=== PATIENT | female | born 1970 | race Caucasian/White ===

== ENCOUNTER 2020-07-02 12:18 | Emergency (ER) | payer BC, SELFPAY ==
[2020-07-02] VITALS (9 sets, daily range): BP systolic 137–199; BP diastolic 61–84; PULSE 78–104; RESP 18–24; TEMP 36.9; O2SAT 96–100
--- NOTE | ~2020-07-02 | XR_ITS ---
EXAMINATION: XR chest 1V portable INDICATION: Shortness of breath TECHNIQUE: Portable AP chest at 1332 hours COMPARISON: None available FINDINGS: Diffuse interstitial and airspace opacities are present. The heart size is upper limits of normal for technique. No pleural effusion or pneumothorax is identified. IMPRESSION: 1. Diffuse lung disease which could reflect pulmonary edema versus pneumonia. Reviewed, dictated and finalized at location A.
--- NOTE | ~2020-07-02 | CT_ITS ---
EXAMINATION: CTA chest PE protocol EXAM DATE: 07/02/2020 16:40 INDICATION: Shortness of breath with elevated d-dimer. TECHNIQUE: Spiral CTA of the chest (pulmonary arteries) was performed with 100 cc Omnipaque 350 intr avenous contrast injection. Images were acquired during the pulmonary arterial phase. Coronal maxi mum intensity projection 3D-reconstructions were created by the technologist on dedicated workstation . Axial, coronal and sagittal reformatted images were reviewed. The dose-length product (DLP) for t his examination was 1000.76 mGy-cm. The exposure was tailored according to patient size (auto mA ex posure control), and iterative reconstruction (ASIR) was used as additional dose reduction technique. There is no prior study for comparison. FINDINGS: Pulmonary arteries are well opacified and without intraluminal filling defects. No thora cic aortic dissection. There are small bilateral pleural effusions. Small regions of linear atelecta sis. Faint perihilar groundglass opacifications, could be edema or infection. Would be atypical appea andrei for COVID 19. Tracheobronchial tree is patent. There is no mediastinal, hilar or axillary lym phadenopathy. There is no pneumothorax. Heart normal in size. No evidence of coronary arterial calcification. There are cholecystectomy clips. There is thoracic spondylosis without osteoblastic or osteolytic lesions identified. IMPRESSION: 1. Small pleural effusions and faint perihilar groundglass opacities; consider edema and infection. COVID 19 not excludable. 2. No confluent consolidation or pulmonary embolism. Reviewed, dictated and finalized at location B.
--- NOTE | 2020-07-02 12:24 | ECG_ITS ---
Measurements Intervals [place] Rate: 87 P: 34 NM: 158 QRS: 13 QRSD: 90 T: 41 QT: 375 QTc: 453 Interpretive Statements SINUS RHYTHM NONSPECIFIC T-WAVE ABNORMALITY- INF/HIGH LAT LEADS BASELINE ARTIFACT- I, III, AVR, AVL,A VF BORDERLINE ECG Electronically Signed On 07-02-2020 13:23:34 CDT by Soto Falk D.O.
[2020-07-02 12:33] LABS: Basophils Absolute Auto 0.1 K/mm3 (0.0-0.1); Basophils Percent Auto 0.6 % (0.2-1.2); Eosinophils Absolute Auto 0.3 K/mm3 (0-0.3); Eosinophils Percent Auto 2.8 % (0-4.4); Hematocrit 39.4 % (37.0-47.0); Hemoglobin 11.9 g/dL (12.0-15.0); Immature Granulocyte Absolute 0.06 K/mm3 (0.00-0.031); Immature Granulocyte Percent A 0.7 % (0-0.5); Lymphocytes Absolute Auto 2.38 K/mm3 (0.9-3.2); Lymphocytes Percent Auto 26.6 % (18.3-44.2); Mean Corpuscular HGB Conc 30.2 g/dl (32-36); Mean Corpuscular Volume 89.3 fl (80-100); Mean Platelet Volume 9.6 fl (7.4-10.4); Monocytes Absolute Auto 0.4 K/mm3 (0.1-0.6); Monocytes Percent Auto 4.9 % (2.6-8.5); Neutrophils Absolute Auto 5.8 K/mm3 (1.3-6.7); Neutrophils Percent Auto 64.4 % (45.5-73.1); Platelet Count Result 282 k/mm3 (150-375); Red Blood Count 4.41 M/mm3 (4.2-5.4); Red Cell Distribution Width 14.3 % (11.5-14.5)
[2020-07-02 12:44] LABS: Anion Gap 8 mmol/L (8-16); Blood Urea Nitrogen 7 mg/dL (7-17); Calcium 8.9 mg/dL (8.4-10.2); Carbon Dioxide 24 mmol/L (22-30); Chloride 108 mmol/L (98-107); Estimated CRCL calculation 125 ml/min; Estimated Glomerular Filt Rate > 60; Glucose 169 mg/dL (65-105); Potassium 3.9 mmol/L (3.4-5.0); Sodium 140 mmol/L (137-145)
--- NOTE | 2020-07-02 13:28 | ED.SOB ---
HPI - SOB/Dyspnea General Chief Complaint: Shortness of Breath/Dyspnea Stated Complaint: CONGESTION Time Seen by Provider: 07/02/20 12:36 Source: patient Mode of arrival: ambulatory Limitations: no limitations History of Present Illness HPI Narrative: This patient is a 49 year old female with history of hypertension, DM, and bipolar who presents for evaluation shortness of breath. She reports she has been having runny nose, sinus congestion for 2 days. Today she reports she woke up wheezing and she has been having intermittent sob. She states she thinks she had a panic attack. She reports she feels better now. She denies fever, chills, chest pain, nausea, vomiting or diarrhea. She denies any sick contacts. MD elicited complaint: shortness of breath Related Data Home Medications Medication Instructions Recorded Confirmed bupropion HCl PO 07/02/20 07/02/20 lithium carbonate 07/02/20 losartan 07/02/20 pioglitazone mg 07/02/20 pravastatin 07/02/20 ziprasidone HCl 07/02/20 Allergies Allergy/AdvReac Type Severity Reaction Status Date / Time Penicillins Allergy Unknown Rash Verified 07/02/20 12:22 Review of Systems Review of Systems: All systems reviewed & are unremarkable except as noted in HPI and below Constitutional: Constitutional: Denies chills and Denies fever(s) ENT: Denies epistaxis, Reports nasal congestion and Denies sore throat Cardiovascular: Cardiovascular: Denies chest pain Respiratory: Respiratory: Reports cough (mild intermittent nonproductive), Reports dyspnea and Reports wheezing Gastrointestinal: Gastrointestinal: Denies abdominal pain, Denies diarrhea, Denies nausea and Denies vomiting Musculoskeletal: Musculoskeletal: Denies back pain PMF Past Medical History Medical History (Updated 07/02/20 @ 17:21 by Misty Wright MD) History of diabetes mellitus History of hyperlipidemia History of hypertension Surgical History Surgical History (Updated 07/02/20 @ 13:34 by Misty Wright MD) History of cholecystectomy Hx of appendectomy Family History Family History (Updated 02/17/17 @ 23:56 by DOCTOR UNKNOWN) Mother Family history of Alzheimer's disease Hypertension Family history of elevated blood lipids Cerebrovascular accident, Onset Age: 78 Father Family history of diabetes mellitus in first degree relative, Onset Age: 55 Hypertension Family history of elevated blood lipids Patient's father is Other Diabetes mellitus Family history of allergic disorder Family history of cardiovascular disease Social History Social History Smoking status: Never smoker Alcohol intake: never Gender identity (if verbalized by the patient): Female Exam Const: General: no acute distress and alert Nutritional Appearance: obese Orientation/consciousness: patient oriented x3 HENMT: Head: normocephalic and atraumatic Face and sinus: face symmetric and other (ruelas) Eyes: EOM: EOMs intact bilaterally Chest: Chest palpation & inspection: normal inspection of the chest Resp: Effort & Inspection: normal respiratory effort, no retractions and no use of accessory muscles Auscultation: clear to auscultation bilaterally Cardio: Rate: regular rate Rhythm: regular rhythm Heart sounds: no murmurs GI: GI Palp: Yes Soft to palpation, No Tenderness to palpation present (GI), No Guarding due to palpation present (GI) and No Rigid due to palpation Skin: General skin exam: normal color Neuro: General: patient oriented x3 and moves all extremities Course Reevaluation(s) Reevaluation #1: I Discussed finding with patient and plan to discharged. She has not concerns and she reports she has follow up with PCP next week. Date: 07/02/20 Time: 17:17 Consultations Consultation #1: I spoke with Barbra Daniels NP animal nutrition teacher for [employer]. She states she will let her PCP know and patient can follow. I discussed patient is stable
[2020-07-02 14:19] LABS: Lithium 0.6 mmol/L (0.6-1.2)
[2020-07-02 14:35] LABS: NT Pro B Type Natriuretic Pept 471 PG/ML (5-100); Troponin I < 0.012 ng/mL (0.000-0.034)
[2020-07-02] MEDS: FUROSEMIDE INJ 40 MG/4 ML VIAL IV PUSH (14:42)
[2020-07-02 15:47] LABS: INR 0.9; Prothrombin Time 11.9 Seconds (11.1-14.7)
[2020-07-02 15:48] LABS: Partial Thromboplastin Time 23.2 SECONDS (22.3-36.8)
[2020-07-02 15:52] LABS: CRP < 0.5 mg/dL (<1.0); Lactate Dehydrogenase 381 U/L (313-618)
[2020-07-02 16:32] LABS: Lactic Acid Reflex 2.4 mmol/L (0.7-2.1)
[2020-07-02 19:14] LABS: Reflex Lactic Acid Yes or No Add Lactic
[2020-07-03 02:52] LABS: SARS-CoV-2 RNA PCR Negative
== END 2020-07-02 17:51 | disposition home or self-care (01) ==
PROVIDERS: Emergency Medicine; Emergency Provider General Practice
DX: R06.00 Dyspnea, unspecified (principal); Z20.828 Contact with and (suspected) exposure to other viral communicable diseases; I10 Essential (primary) hypertension; E11.9 Type 2 diabetes mellitus without complications; F31.9 Bipolar disorder, unspecified; J98.4 Other disorders of lung; R91.8 Other nonspecific abnormal finding of lung field; R94.31 Abnormal electrocardiogram [ECG] [EKG]
CPT/HCPCS: 36415; 71045; 71275; 80048; 80178; 83605; 83615; 83880; 84484; 85025; 85380; 85610; 85730; 86140; 87635; 93005; 96374; 99284; C9803; J1940; Q9967; U0003

== ENCOUNTER 2021-04-28 08:51 | Emergency (ER) | payer BC, SELFPAY ==
[2021-04-28] VITALS (8 sets, daily range): BP systolic 123–166; BP diastolic 52–90; PULSE 68–89; RESP 11–25; TEMP 36.8; O2SAT 97–100
[2021-04-28 09:24] LABS: Basophils Absolute Auto 0.1 K/mm3 (0.0-0.1); Basophils Percent Auto 0.7 % (0.2-1.2); Eosinophils Absolute Auto 0.2 K/mm3 (0-0.3); Eosinophils Percent Auto 2.6 % (0-4.4); Hematocrit 36.4 % (37.0-47.0); Hemoglobin 11.5 g/dL (12.0-15.0); Immature Granulocyte Absolute 0.08 K/mm3 (0.00-0.031); Immature Granulocyte Percent A 0.9 % (0-0.5); Lymphocytes Absolute Auto 2.24 K/mm3 (0.9-3.2); Lymphocytes Percent Auto 25.3 % (18.3-44.2); Mean Corpuscular HGB Conc 31.6 g/dl (32-36); Mean Corpuscular Hemoglobin 27.8 pg (26-34); Mean Corpuscular Volume 87.9 fl (80-100); Mean Platelet Volume 9.5 fl (7.4-10.4); Monocytes Absolute Auto 0.4 K/mm3 (0.1-0.6); Monocytes Percent Auto 4.1 % (2.6-8.5); Neutrophils Absolute Auto 5.9 K/mm3 (1.3-6.7); Neutrophils Percent Auto 66.4 % (45.5-73.1); Platelet Count Result 287 k/mm3 (150-375); Red Blood Count 4.14 M/mm3 (4.2-5.4); Red Cell Distribution Width 14.2 % (11.5-14.5); White Blood Count 8.8 K/mm3 (4.5-10.0)
[2021-04-28 09:36] LABS: Alanine Aminotransferase 22 U/L (4-35); Albumin Level 3.8 g/dL (3.5-5.1); Alkaline Phosphatase 89 U/L (38-126); Anion Gap 6 mmol/L (8-16); Aspartate Amino Transferase 22 U/L (14-36); Bilirubin,Total 0.3 mg/dL (0.2-1.3); Blood Urea Nitrogen 9 mg/dL (7-17); Calcium 8.9 mg/dL (8.4-10.2); Carbon Dioxide 24 mmol/L (22-30); Chloride 109 mmol/L (98-107); Estimated CRCL calculation 132 ml/min; Estimated Glomerular Filt Rate > 60; Glucose 174 mg/dL (65-105); Lipase 83 U/L (23-300); Potassium 3.9 mmol/L (3.4-5.0); Sodium 139 mmol/L (137-145)
[2021-04-28 09:45] LABS: Add Urine Microscopic? YES; Appearance Urine Clear (Clear); Bilirubin Urine Negative (Negative); Blood Urine Negative (Negative); Color Urine Yellow (Yellow); Glucose Urine UA 2+ mg/dL (Negative); Ketones Urine Negative (Negative); Leukocyte Esterase Ur Negative LEU/UL (Negative); Mucus Urine Rare /lpf; Nitrate Urine Negative (Negative); Protein Urine 1+ mg/dL (Negative); RBC Urine 0-2 /hpf (0-2); Specific Grav Ur 1.016 (1.001-1.035); Squamous Epithelial Cell Urine Few /hpf (Few); Urobilinogen Urine Negative mg/dL (<2.0); WBC Urine 0-3 /hpf
--- NOTE | 2021-04-28 10:07 | ED.GENADULT ---
HPI - General Adult General Chief complaint: Nausea/Vomiting/Diarrhea Stated complaint: diarrhea, dizziness Time Seen by Provider: 04/28/21 09:06 Source: patient and RN notes reviewed Mode of arrival: ambulatory Limitations: no limitations History of Present Illness HPI narrative: Patient is a 50-year-old female who presents to emergency department for evaluation of episodic dizziness that began this morning upon waking patient notes that she has had this happen off and on believes it to be related to her bipolar medications patient also has concern for possible dehydration secondary to diarrhea over the last 2 days patient denies any rectal bleeding melena nausea vomiting fever chills or sick contacts on arrival patient in the room in no distress noting that her dizziness is beginning to improve Related Data Home Medications Medication Instructions Recorded Confirmed bupropion HCl PO 04/28/21 ibuprofen 04/28/21 04/28/21 liraglutide [Victoza 3-Rasta] mg SUBCUT 04/28/21 lithium carbonate mg 04/28/21 metformin mg 04/28/21 pioglitazone mg 04/28/21 pravastatin 04/28/21 ziprasidone HCl 04/28/21 Allergies Allergy/AdvReac Type Severity Reaction Status Date / Time Penicillins Allergy Unknown Rash Verified 04/28/21 09:02 Review of Systems Review of Systems: All systems reviewed & are unremarkable except as noted in HPI and below PMFSH Past Medical History Medical History (Updated 04/28/21 @ 11:21 by Adrián Goss PA-C) Bipolar disorder History of diabetes mellitus History of hyperlipidemia History of hypertension Surgical History Surgical History History of cholecystectomy Hx of appendectomy Family History Family History (Updated 02/17/17 @ 23:56 by DOCTOR UNKNOWN) Mother Family history of Alzheimer's disease Hypertension Family history of elevated blood lipids Cerebrovascular accident, Onset Age: 78 Father Family history of diabetes mellitus in first degree relative, Onset Age: 55 Hypertension Family history of elevated blood lipids Patient's father is Other Diabetes mellitus Family history of allergic disorder Family history of cardiovascular disease Social History Social History Smoking status: Never smoker Alcohol intake: never Gender identity (if verbalized by the patient): Female Exam Narrative: Exam Narrative: GENERAL: Well-appearing, obese, and in no acute distress. HEAD: Normocephalic, atraumatic. EYES: PERRLA and EOMI. ENT: Nares clear, no rhinorrhea or epistaxis. Mucous membranes moist. NECK: Supple. No adenopathy or masses. CHEST: Clear to auscultation. No respiratory distress. No wheezes rales or rhonchi HEART: Regular rate and rhythm. No murmur heard. Normal peripheral pulses. ABDOMEN: Soft, nontender, nondistended EXTREMITIES: Normal range of motion. No edema. SKIN: Warm, dry, no rash. NEURO: No focal deficits. Alert and oriented x3. Cranial nerves II through XII grossly intact. Normal speech PSYCH: Normal mood and affect. Course Course Emergency Course: Patient evaluated for dizziness and diarrhea was hydrated notes her symptoms have resolved able to ambulate without complication or difficulty resting comfortably in the room in no distress agreeing to follow-up as instructed with primary care next week as planned ABCs and vital signs intact and stable patient was hydrated is noted and feels much better at this time patient is afebrile nontoxic-appearing in no distress Vital Signs Vital signs: Vital Signs Temperature 98.2 F 04/28/21 08:56 Pulse Rate 71 04/28/21 08:56 Respiratory Rate 16 04/28/21 08:56 Blood Pressure 163/79 H 04/28/21 08:56 Pulse Oximetry 97 04/28/21 08:56 Temperature 98.2 F 04/28/21 08:56 Pulse Rate 70 04/28/21 10:32 Respiratory Rate 20 04/28/21 10:32 Blood Pres
[2021-04-28] MEDS: SODIUM CHLORIDE 0.9% IV 1,000 ML 999 ML IV CONT (10:17)
== END 2021-04-28 12:00 | disposition home or self-care (01) ==
PROVIDERS: Emergency Provider Emergency Medicine; PCP Nurse Practitioner Family
DX: R42 Dizziness and giddiness (principal); F31.9 Bipolar disorder, unspecified; E11.9 Type 2 diabetes mellitus without complications; E78.5 Hyperlipidemia, unspecified; I10 Essential (primary) hypertension; Z79.84 Long term (current) use of oral hypoglycemic drugs
CPT/HCPCS: 36415; 51701; 80053; 81001; 81025; 83690; 85025; 96360; 96361; 99283; J7030

== ENCOUNTER 2021-05-25 10:00 | Emergency (ER) | payer BC, SELFPAY ==
--- NOTE | 2021-05-25 10:07 | ED_ITS ---
HPI - Extremity Injury (Lower) General Chief Complaint: Extremity Problem,Nontraumatic Stated Complaint: joint pain Time Seen by Provider: 05/25/21 10:00 Source: patient and RN notes reviewed Mode of arrival: ambulatory Limitations: no limitations Related Data Home Medications Medication Instructions Recorded Confirmed bupropion HCl PO 04/28/21 ibuprofen 04/28/21 04/28/21 liraglutide [Victoza 3-Rasta] mg SUBCUT 04/28/21 lithium carbonate mg 04/28/21 metformin mg 04/28/21 pioglitazone mg 04/28/21 pravastatin 04/28/21 ziprasidone HCl 04/28/21 losartan 05/25/21 Allergies Allergy/AdvReac Type Severity Reaction Status Date / Time Penicillins Allergy Unknown Rash Verified 04/28/21 09:02 [facility] Past Medical History Medical History (Updated 04/29/21 @ 00:00 by Sam Ochoa) Bipolar disorder History of diabetes mellitus History of hyperlipidemia History of hypertension Surgical History Surgical History History of cholecystectomy Hx of appendectomy Family History Family History (Updated 02/17/17 @ 23:56 by DOCTOR UNKNOWN) Mother Family history of Alzheimer's disease Hypertension Family history of elevated blood lipids Cerebrovascular accident, Onset Age: 78 Father Family history of diabetes mellitus in first degree relative, Onset Age: 55 Hypertension Family history of elevated blood lipids Patient's father is Other Diabetes mellitus Family history of allergic disorder Family history of cardiovascular disease Social History Social History Smoking status: Never smoker Alcohol intake: never Gender identity (if verbalized by the patient): Female Discharge Plan Discharge Prescriptions: No Action losartan 50 mg tablet RF: 0 ziprasidone HCl 80 mg capsule RF: 0 ibuprofen 800 mg tablet RF: 0 pravastatin 10 mg tablet RF: 0 lithium carbonate 300 mg capsule RF: 0 metformin 1,000 mg tablet RF: 0 pioglitazone 30 mg tablet RF: 0 Victoza 3-Rasta 0.6 mg/0.1 mL (18 mg/3 mL) pen injector SUBCUT RF: 0 bupropion HCl 150 mg tablet sustained-release 12 hr PO RF: 0
[2021-05-25 10:11] VITALS: BP 141/58; PULSE 84; RESP 16; TEMP 36.3; O2SAT 99
--- NOTE | 2021-05-25 11:05 | ED.GENADULT ---
HPI - General Adult General Chief complaint: Extremity Problem,Nontraumatic Stated complaint: joint pain Time Seen by Provider: 05/25/21 10:20 Source: patient and RN notes reviewed Mode of arrival: ambulatory Limitations: no limitations History of Present Illness HPI narrative: Patient presents today complaining of bilateral shoulder joint aches and upper back pain x1 week. States pain started after she got her COVID-19 vaccine. Reports she had a fever for 4 days after the vaccine, but this has since resolved. She continues to have body aches in her upper upper back and bilateral shoulders. She currently rates pain 8/10 and has been taking Tylenol and ibuprofen without relief. She denies any additional symptoms. Denies any rheumatological disorders, but states she does have arthritis, throughout my body. States her work is requiring her to have a work note to excuse her from work 2 days ago. Patient works at [employer] and has to stand on her feet for 6 hours at a time. MD complaint: Shoulder pain Related Data Home Medications Medication Instructions Recorded Confirmed bupropion HCl PO 04/28/21 ibuprofen 04/28/21 04/28/21 liraglutide [Victoza 3-Rasta] mg SUBCUT 04/28/21 lithium carbonate mg 04/28/21 metformin mg 04/28/21 pioglitazone mg 04/28/21 pravastatin 04/28/21 ziprasidone HCl 04/28/21 acetaminophen 05/25/21 losartan 05/25/21 Allergies Allergy/AdvReac Type Severity Reaction Status Date / Time Penicillins Allergy Unknown Rash Verified 04/28/21 09:02 Review of Systems Review of Systems: Narrative: CONSTITUTIONAL: Denies fever, chills, or sweats.+ Body aches EYES: Denies visual changes, redness, or discharge. ENT: Denies rhinorrhea, congestion, sore throat, or otalgia. CARDIOVASCULAR: Denies chest pain, palpitations, or edema. RESPIRATORY: Denies cough or dyspnea. GASTROINTESTINAL: Denies abdominal pain, nausea, vomiting, or diarrhea. GENITOURINARY: Denies dysuria or hematuria. SKIN: Denies rash, itching, or wounds. MUSCULOSKELETAL: + Upper back pain, bilateral shoulder pain NEUROLOGIC: Denies headache, numbness, tingling, or weakness. PSYCH: Denies depression or anxiety. [facility] Past Medical History Medical History Bipolar disorder History of diabetes mellitus History of hyperlipidemia History of hypertension Surgical History Surgical History History of cholecystectomy Hx of appendectomy Family History Family History Mother Family history of Alzheimer's disease Hypertension Family history of elevated blood lipids Cerebrovascular accident, Onset Age: 78 Father Family history of diabetes mellitus in first degree relative, Onset Age: 55 Hypertension Family history of elevated blood lipids Patient's father is Other Diabetes mellitus Family history of allergic disorder Family history of cardiovascular disease Social History Social History Smoking status: Never smoker Alcohol intake: never Gender identity (if verbalized by the patient): Female Comments At time of signature, I have reviewed and agree with nursing past medical, surgical, social and family history unless otherwise noted. Please see nursing chart for further information. There is no relevant family history pertinent to the presenting complaint Exam Narrative: Exam Narrative: GENERAL: Well-appearing, well-nourished, and in no acute distress. HEAD: Normocephalic, atraumatic. EYES: EOMI. No redness or drainage. Conjunctivae normal. ENT: Mucous membranes pink and moist. NECK: Normal AROM. CHEST: No respiratory distress. Clear to auscultation. HEART: Regular rate and rhythm. No murmur appreciated. Normal peripheral pulses. ABDOMEN: Soft, n
== END 2021-05-25 11:11 | disposition home or self-care (01) ==
PROVIDERS: Emergency Provider Nurse Practitioner; PCP Nurse Practitioner Family
DX: M25.511 Pain in right shoulder (principal); Z20.822 Contact with and (suspected) exposure to COVID-19; E11.9 Type 2 diabetes mellitus without complications; E78.5 Hyperlipidemia, unspecified; I10 Essential (primary) hypertension
CPT/HCPCS: 87426; 99213; C9803; G0463

== ENCOUNTER 2021-07-14 08:37 | Emergency (ER) | payer BC, SELFPAY ==
[2021-07-14 08:50] VITALS: BP 131/62; PULSE 70; RESP 16; TEMP 36.2; O2SAT 99
--- NOTE | 2021-07-14 09:20 | ED.URI ---
HPI - URI/Sore Throat General Chief Complaint: Upper Respiratory Infection Stated Complaint: sore throat/cough Time Seen by Provider: 07/14/21 09:20 Source: patient Mode of arrival: ambulatory Limitations: no limitations History of Present Illness HPI Narrative: Ana Luisa Estrada is a 50 yo female with a PMH of hypertension, diabetes, high cholesterol, who comes with a sore throat and allergies. She states that her throat is been bothering for the last couple days she is not running a fever, she also has missed work Had covid vaccine Related Data Home Medications Medication Instructions Recorded Confirmed bupropion HCl PO 04/28/21 ibuprofen 04/28/21 04/28/21 liraglutide [Victoza 3-Rasta] mg SUBCUT 04/28/21 lithium carbonate mg 04/28/21 metformin 1,000 mg PO BID 04/28/21 07/14/21 pioglitazone mg 04/28/21 pravastatin 10 mg PO DAILY 04/28/21 07/14/21 ziprasidone HCl 80 mg PO DAILY 04/28/21 07/14/21 acetaminophen 05/25/21 losartan 50 mg PO DAILY 05/25/21 07/14/21 Allergies Allergy/AdvReac Type Severity Reaction Status Date / Time Penicillins Allergy Unknown Rash Verified 04/28/21 09:02 Review of Systems Review of Systems: CONSTITUTIONAL: Denies fever, chills, sweats. EYES: Denies visual changes, redness, discharge. ENT: Has rhinorrhea, congestion, has sore throat, otalgia. CARDIOVASCULAR: Denies chest pain, palpitations, edema. RESPIRATORY: Denies dyspnea, wheezing, cough GASTROINTESTINAL: Denies abdominal pain, nausea, vomiting, diarrhea. GENITOURINARY: Denies dysuria, hematuria, abnormal discharge SKIN: Denies rash or itching. NEUROLOGIC: Denies numbness, or focal weakness. PSYCHIATRIC: Denies anxiety or depression. [facility] Past Medical History Medical History Bipolar disorder History of diabetes mellitus History of hyperlipidemia History of hypertension Surgical History Surgical History History of cholecystectomy Hx of appendectomy Family History Family History Mother Family history of Alzheimer's disease Hypertension Family history of elevated blood lipids Cerebrovascular accident, Onset Age: 78 Father Family history of diabetes mellitus in first degree relative, Onset Age: 55 Hypertension Family history of elevated blood lipids Patient's father is Other Diabetes mellitus Family history of allergic disorder Family history of cardiovascular disease Social History Social History Smoking status: Never smoker Alcohol intake: never Gender identity (if verbalized by the patient): Female Comments At time of signature, I agree with nursing past medical, surgical, social and family history. There is no relevant family history pertinent to the presenting complaint. Exam Narrative: GENERAL: This is a well-nourished, well-developed patient, in mild distress. HEAD: normocephalic, atraumatic. EYES:Sclera clear/white. Vision is grossly intact. EARS: External ears normal, auditory canals clear and without drainage, Hearing grossly intact. NOSE: External nose normal without nasal discharge, nares without redness, has rhinorrhea. THROAT: Mucous membranes moist, posterior pharynx erythema, no exudate NECK: Neck supple, non-tender CARDIOVASCULAR: Regular rate and rhythm without murmurs, gallops, or rubs. RESPIRATORY: Clear to auscultation. Breath sounds equal bilaterally. No wheezes, rales, or rhonchi. GASTROINTESTINAL: Abdomen soft, non-tender, SKIN: warm, intact with no suspicious lesions or rash, good texture and turgor. NEURO: awake, alert, and oriented to person, place and time. There were no obvious focal neurologic abnormalities. Steady gait EXTREMITIES: Normal range of motion. BACK: Nontender without deformity Course Course Emergency
== END 2021-07-14 09:44 | disposition home or self-care (01) ==
PROVIDERS: Emergency Provider Nurse Practitioner
DX: J30.2 Other seasonal allergic rhinitis (principal); J02.9 Acute pharyngitis, unspecified; E11.9 Type 2 diabetes mellitus without complications; E78.5 Hyperlipidemia, unspecified; I10 Essential (primary) hypertension
CPT/HCPCS: 87081; 87880; 99213; G0463

== ENCOUNTER 2022-01-28 15:24 | Emergency (ER) | payer BC, SELFPAY ==
[2022-01-28 15:34] VITALS: BP 151/103; PULSE 91; RESP 16; TEMP 36.8; O2SAT 98
--- NOTE | 2022-01-28 15:59 | ED.NAVMDI ---
HPI - Nausea/Vomiting/Diarrhea General Chief complaint: Nausea/Vomiting/Diarrhea Stated complaint: vomiting Time Seen by Provider: 01/28/22 15:41 Source: patient and RN notes reviewed Mode of arrival: ambulatory Limitations: no limitations History of Present Illness HPI Narrative: Patient presents today complaining of 3-4 episodes of vomiting between 4 and 8:00 this morning. Patient vomited 30 minutes after taking her morning medications this morning. Some mild nausea has persisted, but persistently she has been belching. Patient slept for much of the day and just woke up at 1500 this afternoon. States she has been feeling much better since waking up. She has not vomited after waking up. She has been able to keep down some fluids, and has urinated. Denies abdominal pain, fever, diarrhea. States she tried to go into work at [employer], but was told that she needed a note because she has been vomiting. MD elicited complaint: nausea and vomiting Related Data Home Medications Medication Instructions Recorded Confirmed bupropion HCl 150 mg PO DAILY 04/28/21 01/28/22 lithium carbonate 300 mg PO DAILY 04/28/21 01/28/22 metformin 1,000 mg PO BID 04/28/21 01/28/22 pravastatin 10 mg PO DAILY 04/28/21 01/28/22 ziprasidone HCl 80 mg PO DAILY 04/28/21 01/28/22 losartan 50 mg PO DAILY 05/25/21 01/28/22 benztropine 0.5 mg PO DAILY 01/28/22 01/28/22 tizanidine 4 mg PO DAILY 01/28/22 01/28/22 Allergies Allergy/AdvReac Type Severity Reaction Status Date / Time Penicillins Allergy Unknown Rash Verified 04/28/21 09:02 Review of Systems Review of Systems: CONSTITUTIONAL: Denies body aches, fever, chills, or sweats. EYES: Denies visual changes, redness, or discharge. ENT: Denies rhinorrhea, congestion, sore throat, or otalgia. CARDIOVASCULAR: Denies chest pain, palpitations, or edema. RESPIRATORY: Denies cough or dyspnea. GASTROINTESTINAL: Denies abdominal pain, diarrhea.+ Nausea and vomiting GENITOURINARY: Denies dysuria or hematuria. SKIN: Denies rash, itching, or wounds. MUSCULOSKELETAL: Denies back pain, joint pain, or myalgia. NEUROLOGIC: Denies headache, numbness, tingling, or weakness. PSYCH: Denies depression or anxiety. [facility] Past Medical History Medical History Bipolar disorder History of diabetes mellitus History of hyperlipidemia History of hypertension Surgical History Surgical History History of cholecystectomy Hx of appendectomy Family History Family History Mother Family history of Alzheimer's disease Hypertension Family history of elevated blood lipids Cerebrovascular accident, Onset Age: 78 Father Family history of diabetes mellitus in first degree relative, Onset Age: 55 Hypertension Family history of elevated blood lipids Patient's father is Other Diabetes mellitus Family history of allergic disorder Family history of cardiovascular disease Social History Social History Smoking status: Never smoker Alcohol intake: never Gender identity (if verbalized by the patient): Female Comments At time of signature, I have reviewed and agree with nursing past medical, surgical, social and family history unless otherwise noted. Please see nursing chart for further information. There is no relevant family history pertinent to the presenting complaint Exam Narrative: GENERAL: Well-appearing, well-nourished, and in no acute distress. HEAD: Normocephalic, atraumatic. EYES: EOMI. No redness or drainage. Conjunctivae normal. ENT: Mucous membranes pink and moist. NECK: Normal AROM. Supple. No lymphadenopathy. CHEST: No respiratory distress. Clear to auscultation. HEART: Regular rate and rhythm. No murmur appreciated. Normal perip
== END 2022-01-28 16:10 | disposition home or self-care (01) ==
PROVIDERS: Emergency Provider Nurse Practitioner; PCP Nurse Practitioner Family
DX: R11.2 Nausea with vomiting, unspecified (principal); E11.9 Type 2 diabetes mellitus without complications; E78.5 Hyperlipidemia, unspecified; I10 Essential (primary) hypertension; F31.9 Bipolar disorder, unspecified
CPT/HCPCS: 99211; G0463

== ENCOUNTER 2022-09-30 12:40 | Emergency (ER) | payer BC, SELFPAY ==
[2022-09-30 12:46] VITALS: BP 136/82; PULSE 84; RESP 16; TEMP 36.6; O2SAT 99
--- NOTE | 2022-09-30 12:51 | ED.URI ---
HPI - URI/Sore Throat General Chief Complaint: Upper Respiratory Infection Stated Complaint: sore throat, nose congestion, ears popping Time Seen by Provider: 09/30/22 12:55 Source: patient, RN notes reviewed and old records reviewed Mode of arrival: ambulatory Limitations: no limitations History of Present Illness HPI Narrative: 52-year-old female presents to the [facility] with complaints of sore throat, nasal congestion and ear fullness and popping Symptoms for 1 week. No treatment prior to arrival. Requesting a work Related Data Home Medications Medication Instructions Recorded Confirmed lithium carbonate 300 mg capsule 300 mg PO TIDWM 04/28/21 01/28/22 metformin 1,000 mg tablet 1,000 mg PO BID 04/28/21 01/28/22 pravastatin 10 mg tablet 10 mg PO DAILY 04/28/21 01/28/22 ziprasidone HCl 80 mg capsule 80 mg PO DAILY 04/28/21 01/28/22 losartan 50 mg tablet 50 mg PO DAILY 05/25/21 01/28/22 benztropine 0.5 mg tablet 0.5 mg PO BIDWM 01/28/22 01/28/22 tizanidine 4 mg tablet 4 mg PO DAILY 01/28/22 01/28/22 glimepiride 4 mg tablet mg 09/30/22 ibuprofen 800 mg tablet mg 09/30/22 liraglutide 0.6 mg/0.1 mL (18 mg/3 mg subcut 09/30/22 mL) subcutaneous pen injector (Victoza 3-Rasta) Allergies Allergy/AdvReac Type Severity Reaction Status Date / Time Penicillins Allergy Unknown Rash Verified 09/30/22 12:44 Review of Systems Review of Systems: All systems reviewed & are unremarkable except as noted in HPI and below Constitutional: Constitutional: Reports no additional constitutional complaints, Denies chills and Denies fever(s) Eyes: Eyes: Reports no additional eye complaints ENT: Reports as per HPI and Reports nasal congestion Cardiovascular: Cardiovascular: Reports no additional cardiovascular complaints Respiratory: Respiratory: Reports as per HPI and Reports cough Gastrointestinal: Gastrointestinal: Reports no additional gastrointestinal complaints Musculoskeletal: Musculoskeletal: Reports no additional musculoskeletal complaints Integumentary/Breasts: Skin/Breast: Reports system reviewed and no additional complaints, except as docu Neurologic: Reports system reviewed and no additional complaints, except as documented Psychiatric: Psychiatric: Reports no additional psychiatric complaints Allergic/Immunologic: Allergic/Immunologic: Reports no additional allergic/immunologic complaints PMFSH Past Medical History Medical History Bipolar disorder History of diabetes mellitus History of hyperlipidemia History of hypertension Surgical History Surgical History History of cholecystectomy Hx of appendectomy Family History Family History Mother Family history of Alzheimer's disease Hypertension Family history of elevated blood lipids Cerebrovascular accident, Onset Age: 78 Father Family history of diabetes mellitus in first degree relative, Onset Age: 55 Hypertension Family history of elevated blood lipids Patient's father is Other Diabetes mellitus Family history of allergic disorder Family history of cardiovascular disease Social History Social History Smoking status: Never smoker Alcohol intake: never Gender identity (if verbalized by the patient): Female Comments At the time of my signature, I reviewed and agree with the nursing past medical, surgical, social, and family history. There is no relevant family history pertinent to the patient complaint. Exam Const: General: healthy appearing, comfortable, no acute distress, well developed, alert and well nourished Nutritional Appearance: well nourished Orientation/consciousness: patient oriented x3 Limitations: no limitations HENMT: Head: normal to inspection Ears: external ears normal
== END 2022-09-30 13:23 | disposition home or self-care (01) ==
PROVIDERS: Emergency Provider Nurse Practitioner; PCP Nurse Practitioner Family
DX: J32.9 Chronic sinusitis, unspecified (principal); J40 Bronchitis, not specified as acute or chronic; E11.9 Type 2 diabetes mellitus without complications; E78.5 Hyperlipidemia, unspecified; I10 Essential (primary) hypertension; F31.9 Bipolar disorder, unspecified
CPT/HCPCS: 99213; G0463

== ENCOUNTER 2022-11-18 14:37 | Emergency (ER) | payer BC, SELFPAY ==
[2022-11-18 14:48] VITALS: BP 128/52; PULSE 116; RESP 16; TEMP 37; O2SAT 98
--- NOTE | 2022-11-18 15:11 | ED.URI ---
HPI - URI/Sore Throat General Chief Complaint: Upper Respiratory Infection Stated Complaint: cold/flu sx Time Seen by Provider: 11/18/22 15:05 Source: patient, RN notes reviewed and old records reviewed Mode of arrival: ambulatory Limitations: no limitations History of Present Illness HPI Narrative: 52 year old female who presents to [facility] care with complaints of acute cough for 1.5 weeks with now some sore throat, post nasal drainage, and sneezing for the past 2 days. Patient reports history of seasonal allergies. Patient reports that she has taken some OTC cold medication with no improvement. Patient reports no fevers chills or sweats, body aches, or any nausea vomiting or diarrhea. MD elicited complaint: cough, rhinorrhea, nasal congestion and other (sneezing) Pertinent past history: seasonal allergies Onset (ago): day(s) (2) Pain scale (0-10): 3 Able to tolerate fluids by mouth: Yes Treatments prior to arrival: cold medicine Related Data Home Medications Medication Instructions Recorded Confirmed lithium carbonate 300 mg capsule 300 mg PO TIDWM 04/28/21 11/18/22 metformin 1,000 mg tablet 1,000 mg PO BID 04/28/21 11/18/22 pravastatin 10 mg tablet 10 mg PO DAILY 04/28/21 11/18/22 ziprasidone HCl 80 mg capsule 80 mg PO DAILY 04/28/21 11/18/22 losartan 50 mg tablet 50 mg PO DAILY 05/25/21 11/18/22 benztropine 0.5 mg tablet 0.5 mg PO BIDWM 01/28/22 11/18/22 tizanidine 4 mg tablet 4 mg PO DAILY 01/28/22 11/18/22 glimepiride 4 mg tablet 4 mg PO DAILY 09/30/22 11/18/22 liraglutide 0.6 mg/0.1 mL (18 mg/3 0.6 mg subcut DIRECTED 09/30/22 11/18/22 mL) subcutaneous pen injector (Victoza 3-Rasta) Allergies Allergy/AdvReac Type Severity Reaction Status Date / Time Penicillins Allergy Unknown Rash Verified 11/18/22 14:41 Review of Systems Review of Systems: CONSTITUTIONAL: Denies malaise, chills, sweats, or fever. EYES: Denies visual changes, redness, or discharge. ENT: Reports rhinorrhea, congestion, no sinus pain, no otalgia and sore throat. CARDIOVASCULAR: Denies chest pain, palpitations, or edema. RESPIRATORY: Reports cough.? Denies dyspnea.cough bothersome and persistent GASTROINTESTINAL: Denies abdominal pain, nausea, vomiting, diarrhea SKIN: Denies rash or itching. MUSCULOSKELETAL: Denies myalgia. NEUROLOGIC: Denies headache. All systems reviewed & are unremarkable except as noted in HPI and below PMFSH Past Medical History Medical History (Updated 11/19/22 @ 00:00 by Sam Ochoa) Bipolar disorder History of diabetes mellitus History of hyperlipidemia History of hypertension Surgical History Surgical History (Updated 11/24/22 @ 14:36 by Piper Kumar NP) History of cholecystectomy History of tonsillectomy Hx of appendectomy Family History Family History Mother Family history of Alzheimer's disease Hypertension Family history of elevated blood lipids Cerebrovascular accident, Onset Age: 78 Father Family history of diabetes mellitus in first degree relative, Onset Age: 55 Hypertension Family history of elevated blood lipids Patient's father is Other Diabetes mellitus Family history of allergic disorder Family history of cardiovascular disease Social History Social History Smoking status: Never smoker Alcohol intake: never Gender identity (if verbalized by the patient): Female Comments At time of signature, agree with nursing past medical, surgical, social and family history. There is no relevant family history pertinent to the presenting complaint Exam Narrative: GENERAL: Well-appearing, well-nourished, and in no acute distress. HEAD: Normocephalic EYES: PERRLA, conjunctivae clear ENT: Nares clear, turbinates edematous and erythematous, clear discharge. Mucous membranes moist. TM pearly kim with dull light ref
== END 2022-11-18 15:35 | disposition home or self-care (01) ==
PROVIDERS: Emergency Provider Registered Nurse
DX: J06.9 Acute upper respiratory infection, unspecified (principal); E11.9 Type 2 diabetes mellitus without complications; E78.5 Hyperlipidemia, unspecified; I10 Essential (primary) hypertension; F31.9 Bipolar disorder, unspecified
CPT/HCPCS: 99213; G0463

== ENCOUNTER 2023-03-24 17:13 | Emergency (ER) | payer BC, SELFPAY ==
[2023-03-24 17:26] VITALS: BP 134/48; PULSE 81; RESP 18; TEMP 36.9; O2SAT 99
--- NOTE | 2023-03-24 18:02 | ED.URI ---
HPI - URI/Sore Throat General Chief Complaint: Upper Respiratory Infection Stated Complaint: pain in ear & spread to sinuses; sore throat; dizz Time Seen by Provider: 03/24/23 17:54 Source: patient and RN notes reviewed Mode of arrival: ambulatory Limitations: no limitations History of Present Illness HPI Narrative: Patient presents today with a 3 day history of right ear pain with right sinus pain that started yesterday and throat scratchiness and postnasal drip that started today. Hearing normal. Currently rates her pain 8/10 and has been taking Tylenol and ibuprofen with some relief. Patient states she does have seasonal allergies, but does not currently take any medication for them. Related Data Home Medications Medication Instructions Recorded Confirmed lithium carbonate 300 mg capsule 300 mg PO TIDWM 04/28/21 03/24/23 metformin 1,000 mg tablet 1,000 mg PO BID 04/28/21 03/24/23 pravastatin 10 mg tablet 10 mg PO DAILY 04/28/21 03/24/23 ziprasidone HCl 80 mg capsule 80 mg PO DAILY 04/28/21 03/24/23 losartan 50 mg tablet 50 mg PO DAILY 05/25/21 03/24/23 glimepiride 4 mg tablet 4 mg PO DAILY 09/30/22 03/24/23 liraglutide 0.6 mg/0.1 mL (18 mg/3 0.6 mg subcut DIRECTED 09/30/22 03/24/23 mL) subcutaneous pen injector (Victoza 3-Rasta) Allergies Allergy/AdvReac Type Severity Reaction Status Date / Time Penicillins Allergy Unknown Rash Verified 11/18/22 14:41 Review of Systems Review of Systems: CONSTITUTIONAL: Denies body aches, fever, chills, or sweats. EYES: Denies visual changes, redness, or discharge. ENT: Denies rhinorrhea, congestion, sore throat. + sinus pressure, right ear pain, scratchy throat CARDIOVASCULAR: Denies chest pain, palpitations, or edema. RESPIRATORY: Denies cough or dyspnea. GASTROINTESTINAL: Denies abdominal pain, nausea, vomiting, or diarrhea. GENITOURINARY: Denies dysuria or hematuria. SKIN: Denies rash, itching, or wounds. MUSCULOSKELETAL: Denies back pain, joint pain, or myalgia. NEUROLOGIC: Denies headache, numbness, tingling, or weakness. PSYCH: Denies depression or anxiety. PMFSH Past Medical History Medical History Bipolar disorder History of diabetes mellitus History of hyperlipidemia History of hypertension Surgical History Surgical History History of cholecystectomy History of tonsillectomy Hx of appendectomy Family History Family History Mother Family history of Alzheimer's disease Hypertension Family history of elevated blood lipids Cerebrovascular accident, Onset Age: 78 Father Family history of diabetes mellitus in first degree relative, Onset Age: 55 Hypertension Family history of elevated blood lipids Patient's father is Other Diabetes mellitus Family history of allergic disorder Family history of cardiovascular disease Social History Social History Smoking status: Never smoker Alcohol intake: never Gender identity (if verbalized by the patient): Female Comments At time of signature, I have reviewed and agree with nursing past medical, surgical, social and family history unless otherwise noted. Please see nursing chart for further information. There is no relevant family history pertinent to the presenting complaint Exam Narrative: GENERAL: Well-appearing, well-nourished, and in no acute distress. HEAD: Normocephalic, atraumatic. EYES: EOMI. No redness or drainage. Conjunctivae normal. ENT: Mucous membranes pink and moist. Nares clear. No rhinorrhea. TMs normal bilaterally. Throat normal with moderate postnasal drainage. Uvula midline. NECK: Normal AROM. Supple. No lymphadenopathy. CHEST: No respiratory distress. Clear to auscultation. HEART: Regular rate and
== END 2023-03-24 18:13 | disposition home or self-care (01) ==
PROVIDERS: Emergency Provider Nurse Practitioner; PCP Nurse Practitioner Family
DX: J30.2 Other seasonal allergic rhinitis (principal); F31.9 Bipolar disorder, unspecified; E11.9 Type 2 diabetes mellitus without complications; E78.5 Hyperlipidemia, unspecified; I10 Essential (primary) hypertension
CPT/HCPCS: 99213; G0463

== ENCOUNTER 2025-04-02 13:18 | Emergency (ER) | payer BC, SELFPAY ==
[2025-04-02 13:25] VITALS: BP 131/56; PULSE 78; RESP 16; TEMP 36.6; O2SAT 98
--- NOTE | 2025-04-02 13:47 | ED_ITS ---
HPI - URI/Sore Throat General Chief Complaint: Upper Respiratory Infection Stated Complaint: cough sore throat Time Seen by Provider: 04/02/25 13:40 Source: patient and RN notes reviewed Mode of arrival: ambulatory Limitations: no limitations History of Present Illness HPI Narrative: 54-year-old female presents [facility] upper respiratory symptoms for 4 days. Patient reports cough, sore throat, runny nose, congestion, wheezing for last 4 days. Patient denies any fevers, body aches, chills, chest pain, shortness of breath, nausea, vomiting, diarrhea. Patient has been taking [id number] allergy medicine and nasal spray with some relief. 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 Related Data Home Medications ?Medication ?Instructions ?Recorded ?Confirmed ?Last Taken ?Type lithium carbonate 300 mg capsule 300 mg PO TIDWM 04/28/21 04/02/25 Unknown History metformin 1,000 mg tablet 1,000 mg PO BID 04/28/21 04/02/25 Unknown History pravastatin 10 mg tablet 10 mg PO DAILY 04/28/21 04/02/25 Unknown History ziprasidone HCl 80 mg capsule 80 mg PO DAILY 04/28/21 04/02/25 Unknown History losartan 50 mg tablet 50 mg PO DAILY 05/25/21 04/02/25 Unknown History benztropine 0.5 mg tablet 0.5 mg PO BID 04/02/25 04/02/25 Unknown History ibuprofen 800 mg tablet 800 mg PO TID 04/02/25 04/02/25 Unknown History Allergies Allergy/AdvReac Type Severity Reaction Status Date / Time Penicillins Allergy Unknown Rash Verified 04/02/25 13:22 Review of Systems Review of Systems: CONSTITUTIONAL: Denies fever, chills, body aches, or sweats. EYES: Denies visual changes, redness, or discharge. ENT: Positive for rhinorrhea, congestion, sore throat. Negative for otalgia. CARDIOVASCULAR: Denies chest pain, palpitations, or edema. RESPIRATORY: Positive for cough. Negative for dyspnea or wheezing. GASTROINTESTINAL: Denies abdominal pain, nausea, vomiting, or diarrhea. GENITOURINARY: Denies dysuria or hematuria. SKIN: Denies rash or itching. MUSCULOSKELETAL: Denies back pain, joint pain, or myalgia. NEUROLOGIC: Denies headache, numbness, or weakness. PSYCHIATRIC: Denies anxiety or depression. All other systems reviewed are negative, except as documented in HPI. [facility] Past Medical History Medical History Bipolar disorder History of hypertension History of hyperlipidemia History of diabetes mellitus Surgical History Surgical History History of tonsillectomy History of cholecystectomy Hx of appendectomy Family History Family History Mother Family history of Alzheimer's disease Hypertension Family history of elevated blood lipids Cerebrovascular accident, Onset Age: 78 Father Family history of diabetes mellitus in first degree relative, Onset Age: 55 Hypertension Family history of elevated blood lipids Patient's father is Other Diabetes mellitus Family history of allergic disorder Family history of cardiovascular disease Social History Social History Smoking status: Never smoker Alcohol intake: never Gender identity (if verbalized by the patient): Female Comments At the time of my signature, I reviewed and agree with the nursing past medical, surgical, social, and family history. There is no relevant family history pertinent to the patient complaint. Exam Narrative: GENERAL: This is a well-nourished, well-developed adult, in no apparent distress. They are non ill-appearing, nontoxic appearing. HEAD: normocephalic, atraumatic. EYES: Sclera clear/white. Vision is grossly intact. Conjunctiva normal bilaterally. Extraocular movements intact. EARS: External ears normal, auditory canals clear and without drainage, TMs without erythema or perforation. Hearing grossly intact. NOSE: External nose normal with no obvious nasal discharge, nasal turbinates erythematous with rhinorrhea. THROAT: Mucous membranes moist, posterior pharynx erythemic without swelling, no exudate. Uvula is midline. Postnasal drip present. NECK: Neck supple, non-tender without lymphadenopathy, masses or thyromegaly. CARDIOVASCULAR: Regular rate and rhythm without murmurs, gallops, or rubs. RESPIRATORY: Clear to auscultation. Breath sounds equal bilaterally. No wheezes, rales, or rhonchi. Respiratory rate normal, respiratory effort nonlabored, no respiratory distress SKIN: warm, Dry, intact with no suspicious lesions or rash, good texture and turgor. NEURO: awake, alert, and oriented to person, place and time. There were no obvious focal neurologic abnormalities. EXTREMITIES: No joint tenderness, effusion, or edema noted. BACK: Nontender without deformity. Course Course Emergency Course: Portions of this record may have been created with voice recognition software Level of Care: [facility] Visit MDM - URI/Sore Throat MDM Narrative Medical decision making narrative: Rapid strep negative. Throat culture pending. Symptoms likely viral in etiology. Patient says she is out of her Flonase prescription. Will prescribe Flonase. Discussed physical exam findings. Advised supportive measures and signs/symptoms to go to the ER. Pt is appropriate for outpt treatment and f/u. Differential Diagnosis Differential diagnosis: Likely upper respiratory infection, sinusitis and pharyngitis Lab Data Attestation: I reviewed the patient's lab results. Discharge Plan Discharge Clinical Impression: Upper respiratory infection Qualifiers: URI type: unspecified viral URI Qualified Code(s): J06.9 - Acute upper respiratory infection, unspecified Patient Disposition: Home Condition: Stable Instructions: Upper Respiratory Infection (ED) Additional Instructions: Your rapid strep swab was negative today at [facility]. You will be notified in a few days if the culture comes back positive for strep, and appropriate antibiotics will be called in for you at that time. Your symptoms are likely due to a viral illness, which is not treated with antibiotics. Viral symptoms can be present for up to 10-14 days. Take Tylenol or ibuprofen for fever or pain. Rest and stay hydrated. Follow up with your PCP in 3-5 days if symptoms are not improving. Go to the ER immediately if you develop difficulty breathing or swallowing Patient Language: Divehi Prescriptions: New fluticasone propionate [Flonase Allergy Relief] 50 mcg/actuation spray,suspension 2 spray intranasal DAILY Qty: 1 0RF Rx Instructions: administer into each nostril No Action losartan 50 mg tablet 50 mg PO DAILY benztropine 0.5 mg tablet 0.5 mg PO BID ibuprofen 800 mg tablet 800 mg PO TID ziprasidone HCl 80 mg capsule 80 mg PO DAILY pravastatin 10 mg tablet 10 mg PO DAILY lithium carbonate 300 mg capsule 300 mg PO TIDWM metformin 1,000 mg tablet 1,000 mg PO BID Follow-up/Referrals: UNKNOWN,DOCTOR [Primary Care Provider] - Stand Alone Forms: Work/School Release IP Time of Disposition: 13:48
[2025-04-02 14:03] LABS: EDSTREPNEGPOS1 Negative (Negative)
== END 2025-04-02 13:59 | disposition home or self-care (01) ==
DX: J06.9 Acute upper respiratory infection, unspecified (principal); F31.9 Bipolar disorder, unspecified; I10 Essential (primary) hypertension; E78.5 Hyperlipidemia, unspecified; E11.9 Type 2 diabetes mellitus without complications
CPT/HCPCS: 87081; 87880; 99213; G0463

== ENCOUNTER 2025-08-01 13:08 | Emergency (ER) | payer BC, SELFPAY ==
[2025-08-01 13:15] VITALS: BP 112/74; PULSE 81; RESP 14; TEMP 37.3; O2SAT 99
--- NOTE | 2025-08-01 14:12 | ED.ABDPAIN ---
HPI - Abdominal Pain General Chief Complaint: Upper Respiratory Infection Stated Complaint: Abdominal Pain/Cough Time Seen by Provider: 08/01/25 14:00 Source: patient and RN notes reviewed Mode of arrival: ambulatory Limitations: no limitations History of Present Illness HPI narrative: 54-year-old female presents Express Care complaining of upper respiratory symptoms, abdominal pain, nausea, constipation. Patient said approximately week ago she developed, cough, congestion, runny nose. Patient says the symptoms have been resolving however over the last week she has also developed abdominal pain that is generalized throughout. Patient also reports nausea and vomiting. Patient says she last vomited 3 days ago. Patient says she has a history of diabetes and takes Ozempic. She said her dose has been recently increased to 0.5 mg. Patient says she has not ate anything in week however she said this morning she was able to eat a small bowl of spaghetti. Patient has been able to drink fluids the entire time. Patient reports a small bowel movement this morning. Patient denies any urinary symptoms. Related Data Home Medications ?Medication ?Instructions ?Recorded ?Confirmed ?Last Taken ?Type lithium carbonate 300 mg capsule 300 mg PO TIDWM 04/28/21 08/01/25 Unknown History metformin 1,000 mg tablet 1,000 mg PO BID 04/28/21 08/01/25 Unknown History pravastatin 10 mg tablet 10 mg PO DAILY 04/28/21 08/01/25 Unknown History ziprasidone HCl 80 mg capsule 80 mg PO DAILY 04/28/21 08/01/25 Unknown History losartan 50 mg tablet 50 mg PO DAILY 05/25/21 08/01/25 Unknown History benztropine 0.5 mg tablet 0.5 mg PO BID 04/02/25 08/01/25 Unknown History ibuprofen 800 mg tablet 800 mg PO TID 04/02/25 08/01/25 Unknown History Allergies Allergy/AdvReac Type Severity Reaction Status Date / Time Penicillins Allergy Unknown Rash Verified 08/01/25 13:09 Review of Systems Review of Systems: CONSTITUTIONAL: Denies fever, chills, or sweats. EYES: Denies visual changes, redness, or discharge. ENT: Denies rhinorrhea, congestion, sore throat, or otalgia. CARDIOVASCULAR: Denies chest pain, palpitations, or edema. RESPIRATORY: Denies cough or dyspnea. GASTROINTESTINAL: Positive for abdominal pain, nausea, vomiting,, constipation. Negative for diarrhea. GENITOURINARY: Denies dysuria or hematuria. SKIN: Denies rash or itching. MUSCULOSKELETAL: Denies back pain, joint pain, or myalgia. NEUROLOGIC: Denies headache, numbness, or weakness. PSYCHIATRIC: Denies anxiety or depression. All other systems reviewed are negative, except as documented in HPI. [facility] Past Medical History Medical History Bipolar disorder History of hypertension History of hyperlipidemia History of diabetes mellitus Surgical History Surgical History History of tonsillectomy History of cholecystectomy Hx of appendectomy Family History Family History Mother Family history of Alzheimer's disease Hypertension Family history of elevated blood lipids Cerebrovascular accident, Onset Age: 78 Father Family history of diabetes mellitus in first degree relative, Onset Age: 55 Hypertension Family history of elevated blood lipids Patient's father is Other Diabetes mellitus Family history of allergic disorder Family history of cardiovascular disease Social History Social History Smoking status: Never smoker Alcohol intake: never Gender identity (if verbalized by the patient): Female Comments At the time of my signature, I reviewed and agree with the nursing past medical, surgical, social, and family history. There is no relevant family history pertinent to the patient complaint. Exam Narrative: GENERAL: This is a well-nourished, well-developed adult, in no apparent distress. They are non ill-appearing, nontoxic appearing. Patient is morbidly obese. Physical exam limited due to large body habitus. HEAD: normocephalic, atraumatic. EYES: Sclera clear/white. Conjunctiva normal. Vision is grossly intact. Extraocular movements intact EARS: External ears normal, auditory canals clear and without drainage, TMs normal without perforation. Hearing grossly intact. NOSE: External nose normal with no obvious nasal discharge, nasal turbinates without redness, no rhinorrhea. THROAT: Mucous membranes moist, posterior pharynx boggy without erythema or swelling. Uvula midline. Postnasal drip present. NECK: Neck supple, non-tender without lymphadenopathy, masses or thyromegaly. CARDIOVASCULAR: Regular rate and rhythm without murmurs, gallops, or rubs. RESPIRATORY: Clear to auscultation. Breath sounds equal bilaterally. No wheezes, rales, or rhonchi. GASTROINTESTINAL: Abdomen large, tender throughout, distended. No focal tenderness. Bowel sounds are hypoactive. No hepato-splenomegaly, or palpable masses. No guarding or rigidity. No rebound tenderness. SKIN: warm, Dry, intact with no suspicious lesions or rash, good texture and turgor. NEURO: awake, alert, and oriented to person, place and time. There were no obvious focal neurologic abnormalities. EXTREMITIES: No joint tenderness, effusion, or edema noted. BACK: Nontender without deformity. No CVA tenderness. Course Course Emergency Course: Portions of this record may have been created with voice recognition software Level of Care: Express Care Visit Vital Signs Vital signs: Vital Signs Temperature 99.2 F 08/01/25 13:15 Pulse Rate 81 08/01/25 13:15 Respiratory Rate 14 08/01/25 13:15 Blood Pressure 112/74 08/01/25 13:15 Pulse Oximetry 99 08/01/25 13:15 Temperature 99.2 F 08/01/25 13:15 Pulse Rate 81 08/01/25 13:15 Respiratory Rate 14 08/01/25 13:15 Blood Pressure 112/74 08/01/25 13:15 Pulse Oximetry 99 08/01/25 13:15 Reviewed Transfer Transfered to: [facility] Transportation: Other (Private vehicle) Transfer rationale: Abdominal pain, nausea, vomiting, patient requires higher level care. Potential lab work and advanced imaging. Accepting physician: Dr. Jimenez. MDM - Abdominal Pain MDM Narrative Medical decision making narrative: Patient's abdomen is tender throughout, distended, bowel sounds hypoactive. No guarding or rigidity, no focal tenderness. No peritoneal findings. The patient is able to tolerate fluids and ate a small amount of food today. Patient is able to pass gas. Given patient's symptoms discuss with her through shared decision making about transferred ER or follow-up with her doctor about her symptoms along with discussed with my medical research associate Dr. Piper Romero examined the patient today who would agree this patient could try outpatient medications and if no improvement in 24 hours to go to the ER. She says she does not have a ride to the ER today would like to try anti nausea medications and dicyclomine. Patient not take regular because she takes an antidepressant the interact with this medication. Prescription Zofran and dicyclomine sent to patient's pharmacy. Strict ER precautions discussed with patient specially if her pain is not improving, uncontrollable nausea, vomiting, starts passing gas worsening abdominal pain, dehydration concerns, fevers, or any serious concerns. Differential Diagnosis Differential diagnosis: Likely abdominal pain, small bowel obstruction and other (Gastroparesis, gastroenteritis, constipation,) Critical Care Time Critical Care Time Critical Care Time: No Discharge Plan Discharge Clinical Impression: Abdominal pain Qualifiers: Abdominal location: generalized Qualified Code(s): R10.84 - Generalized abdominal pain Patient Disposition: Home Condition: Stable Instructions: Abdominal Pain (ED) Additional Instructions: Take the Zofran as directed for nausea and vomiting, take dicyclomine as needed for abdominal pain or cramping. The side effects your experiencing may be coming from your Ozempic your taking. Please talk to your doctor about this medication. Drink plenty of fluids, eat as tolerated. If symptoms are not improving in 24 hours, he developed worsening abdominal pain, fevers, unable to eat or drink anything, severe nausea and vomiting, concerns of dehydration, or any serious concerns please go to the ER immediately. Patient Language: Marshallese Prescriptions: New dicyclomine 20 mg tablet 20 mg PO QID PRN (Reason: abdominal pain) Qty: 14 0RF ondansetron 4 mg tablet,disintegrating 4 mg PO Q8H PRN (Reason: nausea and vomiting) Qty: 12 0RF No Action losartan 50 mg tablet 50 mg PO DAILY benztropine 0.5 mg tablet 0.5 mg PO BID ibuprofen 800 mg tablet 800 mg PO TID fluticasone propionate [Flonase Allergy Relief] 50 mcg/actuation spray,suspension 2 spray intranasal DAILY Qty: 1 0RF Rx Instructions: administer into each nostril ziprasidone HCl 80 mg capsule 80 mg PO DAILY pravastatin 10 mg tablet 10 mg PO DAILY lithium carbonate 300 mg capsule 300 mg PO TIDWM metformin 1,000 mg tablet 1,000 mg PO BID Follow-up/Referrals: PHYSICIAN,FUEL OIL TRUCK DRIVER [Primary Care Provider, Internal Medicine] Time of Disposition: 14:25
== END 2025-08-01 14:31 | disposition home or self-care (01) ==
DX: R10.84 Generalized abdominal pain (principal); I10 Essential (primary) hypertension; E78.5 Hyperlipidemia, unspecified; E11.9 Type 2 diabetes mellitus without complications; Z79.84 Long term (current) use of oral hypoglycemic drugs; F31.9 Bipolar disorder, unspecified
CPT/HCPCS: 99213; G0463

== ENCOUNTER 2025-10-22 15:16 | Emergency (ER) | payer BC, SELFPAY ==
--- NOTE | 2025-10-22 15:24 | ED.GENADULT ---
HPI - General Adult General Chief complaint: Dizziness Stated complaint: Dizziness Source: patient Mode of arrival: ambulatory Limitations: no limitations History of Present Illness HPI narrative: Pt is a 55 y/o female presenting with c/o dizziness. She reports intermittent dizziness since getting in an argument with her boss at work yesterday. States stress makes the dizziness worse and the dizziness causes her to feel shaky. Denies any dizziness at present time. States she feels much better than I did. Denies any illicit drug/alcohol use. Denies any changes in medications, diet. Is requesting work excuse due to leaving early yesterday and not going in today. No N,V,D, chest pain, SOB, headache, vision abnormalities, or any other complaints. Of note, pt reports chronic dizziness when supine. Related Data Home Medications ?Medication ?Instructions ?Recorded ?Confirmed ?Last Taken ?Type lithium carbonate 300 mg capsule 300 mg PO TIDWM 04/28/21 08/01/25 Unknown History metformin 1,000 mg tablet 1,000 mg PO BID 04/28/21 08/01/25 Unknown History pravastatin 10 mg tablet 10 mg PO DAILY 04/28/21 08/01/25 Unknown History ziprasidone HCl 80 mg capsule 80 mg PO DAILY 04/28/21 08/01/25 Unknown History losartan 50 mg tablet 50 mg PO DAILY 05/25/21 08/01/25 Unknown History benztropine 0.5 mg tablet 0.5 mg PO BID 04/02/25 08/01/25 Unknown History Allergies Allergy/AdvReac Type Severity Reaction Status Date / Time Penicillins Allergy Unknown Rash Verified 10/22/25 15:18 Review of Systems Review of Systems: CONSTITUTIONAL: Denies body aches, fever, chills, or sweats. EYES: Denies visual changes, redness, or discharge. ENT: Denies rhinorrhea, congestion, sore throat, or otalgia. CARDIOVASCULAR: Denies chest pain, palpitations, or edema. RESPIRATORY: Denies cough or dyspnea. GASTROINTESTINAL: Denies abdominal pain, nausea, vomiting, or diarrhea. GENITOURINARY: Denies dysuria or hematuria. SKIN: Denies rash, itching, or wounds. MUSCULOSKELETAL: Denies back pain, joint pain, or myalgia. NEUROLOGIC: Denies headache, numbness, tingling, or weakness. PSYCH: Denies depression or anxiety. All systems reviewed & are unremarkable except as noted in HPI and below PMFSH Past Medical History Medical History Bipolar disorder History of hypertension History of hyperlipidemia History of diabetes mellitus Surgical History Surgical History History of tonsillectomy History of cholecystectomy Hx of appendectomy Family History Family History Mother Family history of Alzheimer's disease Hypertension Family history of elevated blood lipids Cerebrovascular accident, Onset Age: 78 Father Family history of diabetes mellitus in first degree relative, Onset Age: 55 Hypertension Family history of elevated blood lipids Patient's father is Other Diabetes mellitus Family history of allergic disorder Family history of cardiovascular disease Social History Social History Smoking status: Never smoker Alcohol intake: never Gender identity (if verbalized by the patient): Female Exam Narrative: GENERAL: Well-appearing, well-nourished, and in no acute distress. morbidly obese. HEAD: Normocephalic, atraumatic. EYES: EOMI. No redness or drainage. Conjunctivae normal. ENT: Mucous membranes pink and moist. Nares clear. No rhinorrhea. TMs normal bilaterally. Throat normal. Uvula midline. NECK: Normal AROM. Supple. No lymphadenopathy. CHEST: No respiratory distress. Clear to auscultation. HEART: Regular rate and rhythm. No murmur appreciated. Normal peripheral pulses. ABDOMEN: Soft, nontender, nondistended, normal active bowel sounds. MUSCULOSKELETAL: No bony tenderness. EXTREMITIES: Normal range of motion. No edema. SKIN: Warm, dry, no rash. Capillary refill normal. Normal skin turgor. NEURO: No focal deficits. Alert and oriented x3. Gait steady. PSYCH: Normal affect. No signs of depression or anxiety. Neuro: General: moves all extremities, Normal light touch and pain sensation, no meningeal signs, no focal motor deficits and CN's II-XI intact bilaterally Cranial nerves: Yes Nystagmus not present, Yes Normal facial strength present and Yes Symmetric palate elevation present Cognition (Neuro): normal cognition Gait exam (Neuro): Normal gait present Motor exam (neuro): 5/5 motor strength present throughout Sensory Exam: normal sensation Course Course Level of Care: Express Care Visit Vital Signs Vital signs: Vital Signs Temperature 98.7 F 10/22/25 15:26 Pulse Rate 88 10/22/25 15:26 Respiratory Rate 20 10/22/25 15:26 Blood Pressure 104/58 L 10/22/25 15:26 Pulse Oximetry 98 10/22/25 15:26 Oxygen Delivery Room Air 10/22/25 15:26 Temperature 98.7 F 10/22/25 15:26 Pulse Rate 109 H 10/22/25 16:02 Respiratory Rate 20 10/22/25 15:26 Blood Pressure 158/96 H 10/22/25 16:02 Pulse Oximetry 98 10/22/25 15: Oxygen Delivery Room Air 10/22/25 15:26 MDM MDM Narrative Medical decision making narrative: unremarkable physical exam. Pt reports feeling much better today than yesterday--denies any sx at time of exam. States she only came here today for a work note Discussed elevated blood pressure readings with patient and advised daily BP monitoring and f/u with PCP if persisting. Differential Diagnosis Differential Diagnosis: orthostatic Hypotension, hypoglycemia, CVA, TIA, adverse medication reaction, dizziness/giddiness, BPV Lab Data Labs: Lab Results 10/22/25 Range/Units 15:31 POC Capillary Glucose 174 H (65-105) mg/dl Discharge Plan Discharge Clinical Impression: Dizziness, Encounter to obtain excuse from work, HTN (hypertension) Patient Disposition: Home Condition: Improved Instructions: Antibiotic Form, Dizziness (ED) Additional Instructions: Go straight to ER should your symptoms become worse or should any new symptoms develop Patient Language: Citizen Of [place] Prescriptions: No Action losartan 50 mg tablet 50 mg PO DAILY benztropine 0.5 mg tablet 0.5 mg PO BID dicyclomine 20 mg tablet 20 mg PO QID PRN (Reason: abdominal pain) Qty: 14 0RF ziprasidone HCl 80 mg capsule 80 mg PO DAILY pravastatin 10 mg tablet 10 mg PO DAILY lithium carbonate 300 mg capsule 300 mg PO TIDWM metformin 1,000 mg tablet 1,000 mg PO BID Follow-up/Referrals: PHYSICIAN,RELAY RECORD CLERK [Primary Care Provider, Internal Medicine] - 10/23/25 Stand Alone Forms: Work/School Release IP Time of Disposition: 16:13
[2025-10-22 15:26] VITALS: BP 104/58; PULSE 88; RESP 20; TEMP 37.1; O2SAT 98
[2025-10-22 15:45] VITALS: BP 106/80; PULSE 89
[2025-10-22 15:48] VITALS: BP 142/100; PULSE 94
[2025-10-22 16:02] VITALS: BP 158/96; PULSE 109
== END 2025-10-22 16:20 | disposition home or self-care (01) ==
PROVIDERS: Emergency Provider Registered Nurse
DX: Z02.79 Encounter for issue of other medical certificate (principal); R42 Dizziness and giddiness; I10 Essential (primary) hypertension; E78.5 Hyperlipidemia, unspecified; E11.9 Type 2 diabetes mellitus without complications; Z79.84 Long term (current) use of oral hypoglycemic drugs; F31.9 Bipolar disorder, unspecified
CPT/HCPCS: 82948; 99213; G0463

== ENCOUNTER 2025-10-25 23:33 | Emergency (ER) | payer BC, SELFPAY ==
--- NOTE | ~2025-10-25 | XR_ITS ---
Examination: XR knee RT 3V Clinical History: Fall Comparison: None Technique: 3 views right knee Findings/impression: 1. Joint effusion. 2. No acute fracture or dislocation. 3. Severe medial compartment joint space narrowing. 4. Severe tricompartmental degenerative changes. Reviewed, dictated and finalized at location [facility]. [employer] D[employer]EL MECH[employer]IC
[2025-10-25 23:35] VITALS: BP 147/81; PULSE 77; RESP 14; TEMP 36.5; O2SAT 100
[2025-10-26] MEDS: ACETAMINOPHEN 500 MG TABLET 1000 MG PO (02:26)
--- NOTE | 2025-10-26 02:27 | ED.GENADULT ---
HPI - General Adult General Chief complaint: Fall Stated complaint: fall, R knee pain Time Seen by Provider: 10/26/25 00:10 History of Present Illness HPI narrative: 55-year-old female presenting with acute right knee pain after sustaining a fall. Patient denies hitting her head. Maintains that she is still able to bear weight. Neurovascular intact. Related Data Home Medications ?Medication ?Instructions ?Recorded ?Confirmed ?Last Taken ?Type lithium carbonate 300 mg capsule 300 mg PO TIDWM 04/28/21 08/01/25 Unknown History metformin 1,000 mg tablet 1,000 mg PO BID 04/28/21 08/01/25 Unknown History pravastatin 10 mg tablet 10 mg PO DAILY 04/28/21 08/01/25 Unknown History ziprasidone HCl 80 mg capsule 80 mg PO DAILY 04/28/21 08/01/25 Unknown History losartan 50 mg tablet 50 mg PO DAILY 05/25/21 08/01/25 Unknown History benztropine 0.5 mg tablet 0.5 mg PO BID 04/02/25 08/01/25 Unknown History Allergies Allergy/AdvReac Type Severity Reaction Status Date / Time Penicillins Allergy Unknown Rash Verified 10/25/25 23:34 Review of Systems Review of Systems: All systems reviewed & are unremarkable except as noted in HPI and below PMFSH Past Medical History Medical History Bipolar disorder History of hypertension History of hyperlipidemia History of diabetes mellitus Surgical History Surgical History History of tonsillectomy History of cholecystectomy Hx of appendectomy Family History Family History Mother Family history of Alzheimer's disease Hypertension Family history of elevated blood lipids Cerebrovascular accident, Onset Age: 78 Father Family history of diabetes mellitus in first degree relative, Onset Age: 55 Hypertension Family history of elevated blood lipids Patient's father is Other Diabetes mellitus Family history of allergic disorder Family history of cardiovascular disease Social History Social History Smoking status: Never smoker Alcohol intake: never Gender identity (if verbalized by the patient): Female Exam Narrative: GENERAL: No acute distress. HEAD: Normocephalic, atraumatic. EYES: PERRLA and EOMI. ENT: Nares clear, no rhinorrhea or epistaxis. Mucous membranes moist. Oropharynx without tonsillar hypertrophy exudate or other lesions. Bilateral TMs pearly kim non-bulging NECK: Supple. No adenopathy or masses. No carotid bruits or JVD CHEST: Clear to auscultation. No respiratory distress. No wheezes rales or rhonchi HEART: Regular rate and rhythm. No murmur heard. Normal peripheral pulses. ABDOMEN: Soft, nontender, nondistended, normal active bowel sounds. EXTREMITIES: No erythema, edema, warmth, or ecchymosis around right knee. Maintains good ROM and 5/5 strength. No popping or catching noted. SKIN: Warm, dry, no rash. NEURO: No focal deficits. Alert and oriented x3. PSYCH: Normal mood and affect Course Vital Signs Vital signs: Vital Signs Temperature 97.7 F 10/25/25 23:35 Pulse Rate 77 10/25/25 23:35 Respiratory Rate 14 10/25/25 23:35 Blood Pressure 147/81 H 10/25/25 23:35 Pulse Oximetry 100 10/25/25 23:35 Oxygen Delivery Room Air 10/25/25 23:35 Temperature 97.7 F 10/25/25 23:35 Pulse Rate 77 10/25/25 23:35 Respiratory Rate 14 10/25/25 23:35 Blood Pressure 147/81 H 10/25/25 23:35 Pulse Oximetry 100 10/25/25 23:35 Oxygen Delivery Room Air 10/25/25 23:35 [facility] Narrative Medical decision making narrative: 55-year-old female presenting with acute right knee pain after sustaining a fall. Patient denies hitting her head. Maintains that she is still able to bear weight. Neurovascular intact. Imaging demonstrates no acute abnormalities. Patient declined Jae wrap and crutches. Administered Tylenol and Toradol which improved patient's pain. Advised follow-up with primary if symptoms persist. Patient agrees with discussion and after shared medical decision making agrees with plan of care. All questions were answered to the patient's satisfaction. The patient is appropriate for outpatient treatment and follow-up. Given reasons return Differential Diagnosis Differential Diagnosis: Differential diagnostic considerations for lower extremity injury include ankle sprain/strain, acute internal derangement of knee, fracture of femur, fracture of hip, puncture wound of foot, fracture of toe, fracture of ankle, tendon rupture (achilles/patellar/quadriceps). Medical Records I have reviewed the following patient records and this information was taken into consideration when formulating the assessment and plan.: previous labs and previous ER visits Imaging Data Attestation: I personally reviewed and interpreted this imaging study as follows: Radiologist's impression: XR RT knee: Findings/impression: 1. Joint effusion. 2. No acute fracture or dislocation. 3. Severe medial compartment joint space narrowing. 4. Severe tricompartmental degenerative changes. Discharge Plan Discharge Clinical Impression: Fall, Acute knee pain Patient Disposition: Home Condition: Stable Instructions: Knee Pain (ED) Additional Instructions: Return to the ER if you experience fever, redness and swelling of your extremity, numbness or any other symptoms that are concerning to you Weight-bearing as tolerated. Ice and elevate extremity. Take anti-inflammatories (Aleve, Ibuprofen, Naproxen, etc) and Tylenol as needed for pain. Follow up with your doctor for further care. If pain persists, follow-up with your orthopedic provider as discussed. Patient Language: Yi Prescriptions: No Action losartan 50 mg tablet 50 mg PO DAILY benztropine 0.5 mg tablet 0.5 mg PO BID dicyclomine 20 mg tablet 20 mg PO QID PRN (Reason: abdominal pain) Qty: 14 0RF ziprasidone HCl 80 mg capsule 80 mg PO DAILY pravastatin 10 mg tablet 10 mg PO DAILY lithium carbonate 300 mg capsule 300 mg PO TIDWM metformin 1,000 mg tablet 1,000 mg PO BID Follow-up/Referrals: PHYSICIAN,MARKETING OPERATIONS ASSOCIATE [Primary Care Provider, Internal Medicine]
[2025-10-26] MEDS: KETOROLAC 30 MG/ML VIAL (*BKC) IM (02:28)
== END 2025-10-26 02:52 | disposition home or self-care (01) ==
DX: M25.561 Pain in right knee (principal); I10 Essential (primary) hypertension; E78.5 Hyperlipidemia, unspecified; E11.9 Type 2 diabetes mellitus without complications; W19.XXXA Unspecified fall, initial encounter
CPT/HCPCS: 73562; 96372; 99283; A9270; J1885

== ENCOUNTER 2025-11-10 13:10 | Emergency (ER) | payer BC, SELFPAY ==
--- OUTSIDE RECORDS SUMMARY | 2025-11-10 13:25 | XMS_ITS | Clinical Summary ---
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 Name Role Phone Unavailable Primary Care Provider Unavailabl e Social History Tobacco Use Types Packs/Day Years Used Date Smoking Tobacco: Never Assessed Comments Unknown Sex and Gender Information Value Date Recorded Sex Assigned at Not on file Legal Sex Female 11:12 PM CDT Gender Identity Not on file Sexual Orientation Not on file Plan of Treatment Health Maintenance Due Date Last Done Comments Cervical Cancer Screening Pa p Smear (Age 30 to 64) Every 3 Years 1971 Colorectal Cancer Screening Colonoscopy (10 Years) 1971 Annual Physical 1974 Hepatitis C 1989 DTaP, Tdap and Td Vaccines ( 1 - Tdap) 1990 Hepatitis B Vaccines (1 of 3 - 19+ 3-dose series) 1990 Cervical Cancer Screening Pa p with HPV Testing (Age 30 to 64) Every 5 Years 2001 Cervical Cancer Screening with HPV 2001 Mammogram Screening 2011 Pneumococcal Vaccine: 50+ Ye ars (1 of 1 - PCV) 2021 Zoster Vaccines (1 of 2) 2021 COVID-19 Vaccine (2024-2 6 season) 2025 Influenza Adult (#1) 2025 Hepatitis A Vaccines Aged Out No long er eligible based on patient's age to complete this topic Meningococcal B Vaccine Aged Out No l onger eligible based on patient's age to complete this topic Meningococcal Vaccine Aged Out No gigi estefanía eligible based on patient's age to complete this topic RSV Immunizations Under 20 Months Aged Out No longer eligible based on patient's age to complete this topic
--- OUTSIDE RECORDS SUMMARY | 2025-11-10 13:25 | XMS_ITS | Continuity of Care Document ---
Author Organization [place] - [facility], [facility] [place] Address [address] [place] [address] Care Team Providers Care Traffic Analyst Name Role Phone ARCHANA ALARCON Primary Care Provider [phone] ARCHANA ALARCON Referring Provider Assessment Encounter Date Assessment Date Assessment LastModified by Organization Details LastModified Time 10/20/2025 10/20/2025 The patient has rotator cuff tendonitis she may have a small full-thickness tear of the rotator cuff. She does have some weakness with strength testing today. We talked about treatment options today in detail we are going to get her set up with a course of oral prednisone and physical therapy we will hold off on a shot until we get an MRI scan to take a look for further evaluation to make sure there is nothing that needs to be repaired surgically. She states her blood sugars stay fairly normal she will keep an eye on them with the prednisone. She will also then take ibuprofen 800 mg 3 times a day on a regular basis for awhile she does have a prescription for that already but has not been taking it as prescribed. She will follow up with Dr. Tran in the MRI is done. She voiced understanding agrees above plan she will call for any further problems difficulties or questions. [email or web address] Not available 10/20/2025 12:02:52 Plan of Treatment Reminders Order Date Submit Date Provider Last Modified By Organization Details Last Modified Time Details Appointments Any 5 2025 10:30A M RILEY Perez Not available Not available Not available Any 15 2025 11:15A M AXEL Gomez Not available Not available Not available Lab None recorded. Referral physical therapist referral 2024 025 [email or web address], [address], [place], [address], 11/10/2025 08:29:20 Procedures None recorded. Surgeries None recorded. Imaging XR, shoulder 2024 025 [email or web address] [facility] [place], [address], [place], [address], 10/20/2025 12:08:41 MRI, shoulder, w/o contrast 2024 025 [email or web address], [address], [place], [address], 11/10/2025 12:51:39 Medication Orders prednison e 10 mg tablets in a dose pack [address] [facility] [address], [address], [place], [address], 10/20/2025 12:03:15 Patient TargetsNo targets recorded. Patient InstructionsNo instructions recorded. Reason for Referral Physical Therapist Referral for Pain of left shoulder region Referring Physician: Willis Salazar, Orthopedic Surgery, Encounter Date: 10/20/2025 Results Created Date Observation Date Name Description Value Unit Range Abnormal Flag Note LastModifiedBy Organization Detail LastModifiedTime 10/20/20 25 XR, shoul júnior No observ ation record ed. [email or web address] [facility] [place] [address], [place], [address], 10/20/2025 12:03:46 Result Notes None recorded. Problems Name Problem SNOMED Code Status Onset Date Resolution Date Notes Provider Name and Address Organization Details Recorded Time Diabetes mellitus 10869874 Active 2018 Not Available [facility] 3 04:52:02 Edema of lower extremity 541853661 Active 2018 Not Available [facility] 3 04:52:01 Bipolar disorder 30067374 Active 2018 Not Available [facility] 3 04:52:01 Pain in left knee Active 2018 Not Available [facility] 3 04:52:01 Obese 333713202 Active 2018 Not Available [facility] 3 04:52:01 Hyperlipid emia 41948869 Active 2018 Not Available [facility] 3 04:52:02 Essential hypertensi on 85845307 Active 2018 Not Available [facility] 3 04:52:02 Vitamin B12 deficiency (non anemic) 13649370 Active 2018 Not Available [facility] 3 04:52:02 Iron deficiency anemia 82621137 Active 2018 Not Available [facility] 3 04:52:02 Knee pain Active 2019 Not Available [facility] 3 04:52:01 Tremor 09432867 Active 2020 Not Available [facility] 3 04:52:01 [place] monitoring 657224463 Active 2020 Not Available [facility] 3 04:52:01 Tardive dyskinesia 249866963 Active 2021 Not Available [facility] 3 04:52:01 Pain of multiple joints 78240905 Active 2021 Not Available [facility] 3 04:52:01 Pain of bilateral knee joints 2453480837669 04 Active 2021 Not Available [facility] 3 04:52:02 Fatigue 18758334 Active 2021 Not Available [facility] 3 04:52:02 Allergic rhinitis 59308223 Active 2022 Rosemarie York NP [address], [place], [address] , [facility] [facility] 3 08:49:34 Obstructiv e sleep apnea syndrome 31066952 Active 2022 Rosemarie York NP [address], [place], [address] , [place] [facility] 3 08:51:38 Excessive cerumen in ear canal 186365592 Active 2022 Rosemarie Yokr NP [address], [place], [address] , [place] [facility] 3 09:40:58 Sleep apnea 23344535 Active 2022 Rosemarie York NP [address], [place], [address] , [place] [facility] 3 10:31:46 Pain in bilateral feet 6146450144458 9102 Active 2022 Rosemarie York NP [address], [place], [address] , [place] [facility] 3 10:37:07 Dysuria 28666756 Active 2022 Rosemarie York NP [address], [place], [address] , [place] [facility] 3 12:23:36 Uncontroll ed type 2 diabetes mellitus 775827821 Active 2022 Rosemarie York NP [address], [place], [address] , [place] [facility] 3 11:43:34 Acute urinary tract infection 067883286 Active 2022 Rosemarie York NP [address], [place], [address] , [place] [facility] 3 09:06:59 Cough 55125761 Active 2022 Rosemarie York NP [address], [place], [address] , [place] [facility] 3 17:01:11 Pain in left foot 6595758507184 07 Active 2023 AXEL Gomez [address], [place], [address] , [place] [facility] 4 11:34:59 Severe dry skin 360949684 Active 2023 AXEL Gomez [address], [place], [address] , [place] [facility] 4 11:38:07 Pain of left shoulder joint 2018503069361 9109 Active 2023 AXEL Gomez [address], [place], [address] , [place] [facility] 4 11:02:36 Type 2 diabetes mellitus without complicati on 976453972 Active 2024 AXEL Gomez [address], [place], [address] , [place] [facility] 5 12:34:18 Pain of knee region 2227260914 Active 2024 AXEL Gomez [address], [place], [address] , [facility] 5 11:07:13 Episodic migraine 0325463907577 06 Active 2024 AXEL Gomez [address], [place], [address] , [place] [facility] 5 11:09:33 Diabetic foot 756192533 Active 2024 AXEL Gomez [address], [place], [address] , [place] [facility] 5 16:11:13 Pain of left shoulder region Active 2024 [address] [place], [place] [facility] 5 11:20:34 Nontraumat ic rotator cuff tear 268664461 Active 2024 RILEY Perez [address], [place], [address] , [facility] 5 12:04:35 Problem Notes None recorded. Procedures Surgical History Date Name Laterality Status Provider Name and Address Organization Details Recorded Time 02/01/20 23 Cerumen Removal completed Rosemarie York NP [address], [place], [address], [facility] 01/31/2023 09:40:45 11/13/18 90 other completed Rosemarie Rojas RN [facility] 01/31/2023 08:28:09 Tonsillectomy completed Not Available [facility] 01/11/2023 04:42:50 Imaging Results None recorded. Procedure Notes None recorded. Medical Equipment None Reported. Allergies Allergen ID Allergen Name Allergen Category Reaction Reaction Severity Criticality Documentation Date Start Date Code Code System Note Provider Name and Address Organization Details Recorded Time 8493 Product containin g penicilli n (product) medicatio n rash Not available Not available 01/11/2023 89796 8001 SNOMED Not Available [facility] 05:05:16 Medications Name Sig Start Date Stop Date Status Note LastModified by Organization Details LastModified Time OneTouch Ultra Blue Test Strips use to test fasting glucose daily 02/06 completed Not Available Not Available Not Available losartan 50 mg tablet TAKE 1 TABLET BY MOUTH ONCE DAILY 05/02 completed Not Available Not Available Not Available ziprasido ne 80 mg capsule TAKE 1 CAPSULE BY MOUTH TWICE DAILY WITH MEALS 05/02 completed Not Available Not Available Not Available bupropion HCl SR 150 mg tablet,12 hr sustained -release TAKE 1 TABLET BY MOUTH TWICE DAILY WITH MEALS 01/31 completed Not Available Not Available Not Available doxycycli ne hyclate 100 mg capsule TAKE 1 CAPSULE BY MOUTH TWICE DAILY FOR 10 DAYS active Not Available Not Available No t Available benztropi ne 0.5 mg tablet TAKE 1 TABLET BY MOUTH TWICE DAILY WITH MEALS 10/20 completed Not Available Not Available Not Available cetirizin e 10 mg tablet TAKE 1 TABLET BY MOUTH ONCE DAILY 05/02 completed Not Available Not Available Not Available azithromy uri 250 mg tablet TAKE 2 TABLETS (500 MG) BY ORAL ROUTE ONCE DAILY FOR 1 DAY THEN 1 TABLET (250 MG) BY ORAL ROUTE ONCE DAILY FOR 4 DAYS 10/20 completed Not Available Not Available Not Available ibuprofen 800 mg tablet TAKE 1 TABLET BY MOUTH THREE TIMES DAILY NEEDED ALTERNAT E WITH TYLENOL active Not Available Not Available No t Available tizanidin e 4 mg tablet Take 1 tablet every 6 hours by oral route as needed. 08/22 completed Not Available Not Available Not Available benzonata te 200 mg capsule TAKE 1 CAPSULE BY MOUTH THREE TIMES DAILY NEEDED 02/12 completed Not Available Not Available Not Available meloxicam 15 mg tablet TAKE 1 TABLET BY MOUTH ONCE DAILY 08/22 completed Not Available Not Available Not Available naltrexon e 50 mg tablet 01/31 completed Not Available Not Available Not Available clindamyc in HCl 150 mg capsule 07/03 completed Not Available Not Available Not Available fexofenad ine 180 mg tablet TAKE 1 TABLET BY MOUTH ONCE DAILY 01/31 completed Not Available Not Available Not Available ciproflox acin 500 mg tablet TAKE 1 TABLET BY MOUTH EVERY 12 HOURS FOR 3 DAYS 08/22 completed Not Available Not Available Not Available acetamino phen 500 mg tablet TAKE 1 TABLET BY MOUTH THREE TIMES DAILY NEEDED active Not Available Not Available No t Available prednison e 10 mg tablets in a dose pack Take 1 tab by mouth, 3 times a day for 3 daysTake 1 tab by mouth 2 times a day for 2 daysTake 1 tab by mouth once a day for 1 day 2024 active Not Available Not Available Not Avai lable pravastat in 10 mg tablet TAKE 1 TABLET BY MOUTH NIGHTLY active Not Available Not Available No t Available dicyclomi ne 20 mg tablet TAKE 1 TABLET BY MOUTH 4 TIMES DAILY NEEDED FOR ABDOMINA L PAIN 10/20 completed Not Available Not Available Not Available KoboTouch Ultra Test strips USE TO TEST FASTING GLUCOSE DAILY active Not Available Not Available No t Available lithium carbonate 300 mg capsule TAKE 1 CAPSULE BY MOUTH THREE TIMES DAILY WITH MEALS active Not Available Not Available No t Available doxycycli ne monohydra te 100 mg capsule TAKE 1 CAPSULE BY MOUTH TWICE DAILY 01/31 completed Not Available Not Available Not Available ferrous sulfate 325 mg (65 mg iron) tablet Take 1 tablet every day by oral route. active Not Available Not Available No t Available metformin 1,000 mg tablet TAKE 1 TABLET BY MOUTH TWICE DAILY active Not Available Not Available No t Available lisinopri l 10 mg tablet Take 1 tablet every day by oral route. active Not Available Not Available No t Available glimepiri de 4 mg tablet TAKE 1 TABLET BY MOUTH ONCE DAILY active Not Available Not Available No t Available mupirocin 2 % topical ointment APPLY OINTMENT TOPICALL Y TO AFFECTED AREA THREE TIMES DAILY 01/31 completed Not Available Not Available Not Available diclofena c sodium 50 mg tablet,de layed release TAKE 1 TABLET BY MOUTH THREE TIMES DAILY NEEDED FOR PAIN 08/02 completed Not Available Not Available Not Available irbesarta n 150 mg tablet 1 tab po daily 12/28 completed Not Available Not Available Not Available azelastin e 137 mcg (0.1 %) nasal spray USE 2 SPRAY(S) IN EACH NOSTRIL TWICE DAILY 02/12 completed Not Available Not Available Not Available ibuprofen 600 mg tablet 11/12 completed Not Available Not Available Not Available albuterol sulfate HFA 90 mcg/actua tion aerosol inhaler INHALE 2 PUFFS BY MOUTH 4 TIMES DAILY NEEDED FOR SHORTNES S OF BREATH OR WHEEZING 01/31 completed Not Available Not Available Not Available losartan 50 mg-hydroc hlorothia zide 12.5 mg tablet TAKE 1 TABLET BY MOUTH ONCE DAILY DIRECTED 05/02 completed Not Available Not Available Not Available pioglitaz one 30 mg tablet TAKE 1 TABLET BY MOUTH ONCE DAILY 08/02 completed Not Available Not Available Not Available ziprasido ne 60 mg capsule TAKE 1 CAPSULE BY MOUTH TWICE DAILY WITH MEALS active Not Available Not Available No t Available ondansetr on 4 mg disintegr ating tablet DISSOLVE 1 TABLET IN MOUTH EVERY 8 HOURS NEEDED FOR NAUSEA AND VOMITING 10/20 completed Not Available Not Available Not Available losartan 100 mg tablet Take 1 tablet by mouth once daily 2024 active Not Available Not Available Not Avai lable fluticaso ne propionat e 50 mcg/actua tion nasal spray,clrak pension USE 1 SPRAY(S) IN EACH NOSTRIL TWICE DAILY active Not Available Not Available No t Available loratadin e 10 mg tablet TAKE 1 TABLET BY MOUTH ONCE DAILY DIRECTED active Not Available Not Available No t Available naproxen 500 mg tablet TAKE 1 TABLET BY MOUTH TWICE DAILY active Not Available Not Available No t Available Vitamin B-12 1,000 mcg tablet Take 1 tablet every day by oral route. 08/22 completed Not Available Not Available Not Available neomycin- polymyxin -hydrocor t 3.5 mg-10,000 unit/mL-1 % ear drops,clark p 07/03 completed Not Available Not Available Not Available pen needle, diabetic 31 gauge x 5/16 USE DIRECTED 10/20 completed Not Available Not Available Not Available topiramat e 50 mg tablet TAKE 1 TABLET BY MOUTH TWICE DAILY WITH MEALS 01/31 completed Not Available Not Available Not Available Aquaphor Healing 41 % topical ointment Apply 1 applicat ion every day by topical route as directed for 30 days. 05/02 completed Not Available Not Available Not Available Pen Needle 30 gauge x 5/16 use with victoza daily 10/20 completed Not Available Not Available Not Available Invokana 100 mg tablet take one tab by mouth daily 10/16 completed Not Available Not Available Not Available Victoza 3-Rasta 0.6 mg/0.1 mL (18 mg/3 mL) subcutane ous pen injector INJECT 1.8 MG SUBCUTAN EOUSLY ONCE DAILY 05/02 completed trying for trulicit y on 01/31/23 Not Available Not Available Not Available Farxiga 10 mg tablet TAKE 1 TABLET BY MOUTH ONCE DAILY DIRECTED 05/01 completed Not Available Not Available Not Available Farxiga 5 mg tablet TAKE 1 TABLET BY MOUTH ONCE DAILY 02/12 completed Not Available Not Available Not Available Trulicity 1.5 mg/0.5 mL subcutane ous pen injector INJECT 1.5 MG EVERY WEEK SUBCUTAN EOUSLY. USE AFTER 0.75 MG DOSE 08/22 completed Not Available Not Available Not Available Trulicity 0.75 mg/0.5 mL subcutane ous pen injector INJECT 0.75 MG EVERY WEEK SUBCUTAN EOUSLY 08/22 completed Not Available Not Available Not Available Bydureon BCise 2 mg/0.85 mL subcutane ous auto-inje ctor Inject 2 mg every week by subcutan eous route. 11/14 completed Not Available Not Available Not Available Ozempic 0.25 mg or 0.5 mg (2 mg/1.5 mL) subcutane ous pen injector 0.25 mg SC qwk x4wk, then incr. to 0.5 mg qwk x4wk, then may incr. to 1 mg qwk 11/14 completed Not Available Not Available Not Available OneTouch Ultra Blue Test Strip USE STRIPS TO TEST FASTING GLUCOSE DAILY active Not Available Not Available No t Available OneTouch Ultra2 Meter USE TO TEST FASTING GLUCOSE DAILY 02/06 completed Not Available Not Available Not Available OneTouch Delica Plus Lancet 33 gauge USE DIRECTED TO TEST FASTING SUGAR active Not Available Not Available No t Available [facility] 75 mg disintegr ating tablet DISSOLVE 1 TABLET BY MOUTH EVERY OTHER DAY DIRECTED active Not Available Not Available No t Available ID NOW COVID-19 Test Kit TEST DIRECTED TODAY 08/02 completed Not Available Not Available Not Available Trulicity 3 mg/0.5 mL subcutane ous pen injector INJECT 3 MG ONCE A WEEK SUBCUTAN EOUSLY 05/02 completed Not Available Not Available Not Available Trulicity 4.5 mg/0.5 mL subcutane ous pen injector INJECT 4 & 1/2 (FOUR & ONE-HALF ) MG SUBCUTAN EOUSLY ONCE A WEEK FOR 28 DAYS 05/01 completed Not Available Not Available Not Available Ozempic 1 mg/dose (4 mg/3 mL) subcutane ous pen injector INJECT 1MG SUBCUTAN EOUSLY ONCE A WEEK 10/20 completed Not Available Not Available Not Available Ozempic 2 mg/dose (8 mg/3 mL) subcutane ous pen injector Inject 2 mg every week by subcutan eous route as directed for 28 days. 10/20 completed Not Available Not Available Not Available FreeStyle Cy 3 Sensor device USE DIRECTED TO MONITOR GLUCOSE CONSISTE NTLY. CHANGE EVERY 14 DAYS. active Not Available Not Available No t Available Ozempic 0.25 mg or 0.5 mg (2 mg/3 mL) subcutane ous pen injector INJECT 0.5MG SUBCUTAN EOUSLY ONCE EVERY 7 DAYS 10/20 completed Not Available Not Available Not Available Vitals Date Recorded Body height Body mass index (BMI) Body weight Provider Name and Address Organization Details Last Updated DateTime 10/20/2025 157.48 cm 46.6 kg/m2 414690.05 g Bety Diazs [place] [facility] 10/20/2025 11:14:51 Social History Question Answer Notes LastModified by Organizat ion Details LastModified Time Tobacco Smoking Status Former Smoker Not Available [facility] 01/11/2023 04:12:40 Do You Have An Advance Directive? No Information not available 01/31/2023 Is Blood Transfusion Acceptable In An Emergency? Yes Information not available 01/31/2023 What Is Your Level Of Caffeine Consumption? Moderate [id number] Information not available 01/11/2023 How Much Tobacco Do You Chew? None [id number] Information not available 01/11/2023 What Is Your Code Status? DNR Information not available 01/31/2023 In The 14 Days Before Symptom Onset, Have You Had Close Contact With A Laboratory-confir med COVID-19 While That Case Was Ill? No [id number] Information not available 01/11/2023 In The 14 Days Before Symptom Onset, Have You Had Close Contact With A Person Who Is Under Investigation For COVID-19 While That Person Was Ill? No [id number] Information not available 01/11/2023 What Type Of Diet Are You Following? REGULAR [id number] Information not available 01/11/2023 Which Illicit Or Recreational Drugs Have You Used? None [id number] Information not available 01/11/2023 What Is The Highest Grade Or Level Of School You Have Completed Or The Highest Degree You Have Received? [id number] Information not available 01/31/2023 How Many Days Of Moderate To Strenuous Exercise, Like A Brisk Walk, Did You Do In The Last 7 Days? 5 Information not available 08/22/2023 On Those Days That You Engage In Moderate To Strenuous Exercise, How Many Minutes, On Average, Do You Exercise? 30 Information not available 08/22/2023 Have There Been Any Changes To Your Family Or Social Situation? No Information no t available 01/31/2023 Are There Any Guns Present In Your Home? No Information not available 05/02/2023 Do You Use Insect Repellent Routinely? No Information not available 01/31/2023 Where Do You Live? SingleLevelHouse Information not available 01/31/2023 Do You Have A Medical Power Of Machine Ceramic Coater? No Information not available 01/31/2023 How Many Children Do You Have? 0 Information not available 01/31/2023 Do You Have Any Pets? Yes Information not available 05/02/2023 What Is Your Relationship Status? Information not available 01/31/2023 Do You Use Your Seat Belt Or Car Seat Routinely? Yes Information not available 01/31/2023 Are You Sexually Active? No Information not available 01/31/2023 Do You Have Smoke And Carbon Monoxide Detectors In Your Home? Yes Information not available 01/31/2023 At What Age Did You Start Smoking Tobacco? 20 Information not available 01/31/2023 Are You Passively Exposed To Smoke? No Information no t available 01/31/2023 Are There Any Smokers In Your House? No Information not available 01/31/2023 How Much Tobacco Do You Smoke? No [id number] Information not available 01/11/2023 Do You Participate In Social Media? No Information not available 01/31/2023 What Types Of Sporting Activities Do You Participate In? Walk Information not available 08/22/2023 Do You Use Sunscreen Routinely? No Information not available 01/31/2023 How Many Years Have You Smoked Tobacco? 1 Information not available 01/31/2023 Have You Recently Traveled Abroad? No Information not available 01/31/2023 Are You Currently In School? No Information not available 08/22/2023 Do You Have Any Dietary Restrictions? No Information not available 01/31/2023 Sex: Unknown Functional Status Question Answer Note LastModified by Organizat ion Details LastModified Time Do you use any illicit or recreational drugs? No Information not available 01/31/2023 What is your level of alcohol consumption? None [id number] Information not available 01/11/2023 Do you or have you ever used smokeless tobacco? Never used smokeless tobacco [id number] Information not available 01/11/2023 Are you currently employed? 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 Occasional walk to and from stop sign Information not available 01/31/2023 Mental Status Question Answer Note LastModified by Organization D etails LastModified Time Do you feel stressed (tense, restless, nervous, or anxious, or unable to sleep at night)? [id number] Information not available 08/22/2023 Family History Relationship Description Onset Age of this Age Resolved Age Notes LastModified by Organization Details LastModified Time Brother Diabetes mellitus [id number] Not available 01/11/2023 04:42:51 Brother Hypertensive disorder [id number] Not available 01/11/2023 04:42:51 Maternal Uncle Diabetes mellitus [id number] Not available 01/11/2023 04:42:51 Father Diabetes mellitus Deceas ed (diabe tic coma) [id number] Not available 01/11/2023 04:42:51 Medical History Condition Response ARTHRITIS Y OBESITY Y ANXIETY DISORDER Y DIABETES, TYPE Y DEPRESSION (INCLUDING POST ) Y BACK / NECK PROBLEMS Y PAIN Y HYPERTENSION Y HIGH CHOLESTEROL / HYPERLIPIDEMIA Y Gynecological History Statement/Question Response Flow Moderate Date of LMP 04/08/2024 STIs/STDs N Dislike of Light during Menstrual Headac he Y Do your menstrual headaches get severe N Duration of Flow (days) 5 Most Recent Mammogram Current Control Method None Age at Menarche 12 Breast Problems no Date of Last Colonoscopy Frequency of Cycle (Q days) Most Recent Bone Density Sexually Active? N Weight gain Y Do you get headaches during your period N Menses Monthly Y Date of Last Pap Smear Discharge no Obstetrics History GPAL:G 1 P 0 0 0 0 Immunizations Vaccine Type Date Status Note Provider Nam e and Address Organization Details Recorded Time SARS-COV-2 (COVID-19) vaccine, UNSPECIFIED 1 completed Not Available [facility] 05:04:45 Past Encounters Encounter ID Performer Location Encounter Start Date Encounter Closed Date Diagnosis/Indication Diagnosis SNOMED-CT Code Diagnosis ICD10 Code Diagnosis IMO Codes Diagnosis Note [id number] Suresh Tran MD [facility] [address] [place] [id number] 10/20/2025 10:58:35 10/20/2025 12:06:54 Pain of left shoulder region 8895872919 M25.512 [id number] Nontraumat ic rotator cuff tear 496325770 M75.102 [id number] Health Concerns Section Related Observation LastModified by Organization Detai ls LastModified Time None Recorded Concern Status LastModified by Organization Details LastModified Time None Recorded Payers Encounter Date Sequence Insurance Name Policy Number Policy Zimmerman Covered Member ID Zimmerman Member ID Guarantor Name 10/20/2025 1 [facility] [employer] ON OR AFTER 06/13/2025 (MEDICAID REPLACEMENT - HMO) [id number] Ana Luisa Estrada [id number] Ana Luisa Estrada Notes Date Note Type Note Provider Name and Address Organization Details Recorded Time 10/20/2025 text/html The patient is a 55-year-old female who presents with left shoulder pain. She states for the last month and a half or so she has had aching pain and trouble raising her arm up overhead or trying to do anything heavy with her shoulder. She states previously she could lift her back pack up to head level. Now she can only raise it up to her hip level. She reports weakness not due to any known trauma or injury she thinks she has arthritis in the shoulder by her report. She does take ibuprofen occasionally which really has not been helping. She has taken ibuprofen previously for her knee arthritis. She reports trouble sleeping at night particularly can not sleep on that shoulder she can not do anything heavy repetitive and has limitation of daily activities because of her shoulder discomfort. She states the pain is about a 7 on a scale of 1-10 she comes in today for initial evaluation and treatment.A new past medical history sheet was reviewed and signed on the intake sheet of today's date drug allergies current medications family social history previous surgical history 10 point review of systems was reviewed and discussed in detail today with the patient. RILEY Perez [address], [facility], [place], [address], [facility] [place] [facility] 10/20/2025 12:05:36 OBGyn Episode No OBEpisode recorded.
--- OUTSIDE RECORDS SUMMARY | 2025-11-10 13:26 | XMS_ITS | Data Portability ---
Author Organization [place] [facility] [employer] Main Office Address [address] [place] [address] Care Team Providers Care Purchasing Analyst Name Role Phone ARCHANA ALARCON Primary Care Provider ARCHANA ALARCON Referring Provider Assessment Encounter Date Assessment Date Assessment LastModified by Organization Details LastModified Time 08/22/2023 08/22/2023 needs to schedule GRAPHIC TECHNICIAN visit. Not available 08/22/2023 11:29:16 10/20/2025 10/20/2025 The patient has rotator cuff [...] available Not available Any 15 2025 11:15A Bobbi Alarcon, RETAIL DIRECTOR Not available Not available Not available Lab TSH, serum or plasma 2024 025 [facility] (Lab), [address] [place], [address], 05/02/2025 13:35:44 glycohemo globin, total, blood 2024 025 [facility] (Lab), [address] [place], [address], 05/02/2025 13:35:44 lipid panel, serum 2024 025 [facility] (Lab), [address] [place], [address], 05/02/2025 13:35:44 CMP, serum or plasma 2024 025 [facility] (Lab), [address] [place], [address], 05/02/2025 13:35:44 CBC w/ auto diff 2024 025 [facility] (Lab), [address] [place], [address], 05/02/2025 13:35:44 CMP, serum or plasma [address] (Lab), [address] [place], [address], 02/20/2024 08:08:00 glycohemo globin, total, blood [address] (Lab), [address] [place], [address], 02/20/2024 08:08:00 microalbu min, urine [address] (Lab), [address] [place], [address], 02/20/2024 08:08:00 glycohemo globin, total, blood [address] (Lab), [address] [place], [address], 05/21/2024 08:24:44 lipid panel, serum [address] (Lab), [address] [place], [address], 02/20/2024 08:08:00 CMP, serum or plasma [address] (Lab), [address] [place], [address], 08/29/2023 08:01:15 glycohemo globin, total, blood [address] (Lab), [address] [place], [address], 08/29/2023 08:01:15 lipid panel, serum [address] (Lab), [address] [place], [address], 08/29/2023 08:01:15 Referral physical therapist referral 2024 025 [email or web address] [facility], [address], [place], [address], 11/10/2025 08:29:20 orthopedi c surgeon referral - Please call patient to schedule an appointme nt. Thank you. 2024 025 [email or web address] [facility], [address], [place], [address], 08/18/2025 09:57:39 podiatris t referral - Please call patient to schedule an appointme nt. Thank you. 2023 024 [email or web address] [facility], [address] [facility] [address] [facility], [address], [place], [address], 05/31/2024 16:02:42 obstetric nico and gynecolog ist referral - Please call patient to schedule an appointme nt. Thank you. 2023 024 [email or web address] Pita Jewell MD, [address] [facility], [place], [address], 03/13/2024 09:02:52 podiatris t referral - Please call patient to schedule an appointme nt if patient has not scheduled yet. Thank you. 2023 024 [email or web address] Justice Julian [facility], [address] [facility], [address], [place], [address], 04/09/2024 09:17:19 Procedures None recorded. Surgeries None recorded. Imaging XR, shoulder 2024 025 [email or web address] [facility], [address], [place], [address], 10/20/2025 12:08:41 MRI, shoulder, w/o contrast 2024 025 [email or web address] [facility], [address] [facility], [place], [address], 11/10/2025 12:51:39 XR, shoulder, 2 or more view 2023 [email or web address] [place] [address], [address], [address], 05/09/2024 10:08:56 MAMMO, screening , digital, bilateral 2023 [email or web address] [place] [address] (Mammography) , [address], [place], [address], 02/27/2024 11:13:17 XR, foot, 3 or more view [address] [place] [address], [address], [place], [address], 02/27/2024 11:13:17 MAMMO, screening , bilateral 2022 023 [email or web address] 56 [facility], [address], [place], [address], 10/10/2023 10:01:01 Medication Orders prednison e 10 mg tablets in a dose pack 2024 025 [facility] [address]25, [address], [place], [address], 10/20/2025 12:03:15 Ozempic 0.25 mg or 0.5 mg (2 mg/3 mL) subcutane ous pen injector 2024 025 [email or web address] [facility] 2425, [address], [place], [address], 10/20/2025 11:17:29 pravastat in 10 mg tablet 2024 025 [facility] [address]25, [address], [place], [address], 05/01/2025 11:14:54 Nurtec ODT 75 mg disintegr ating tablet 2024 025 [email or web address] [facility] [address]25, [address], [place], [address], 05/01/2025 13:51:58 acetamino phen 500 mg tablet 2024 025 [facility] [address]25, [address], [place], [address], 05/01/2025 11:12:19 acetamino phen 500 mg tablet 2023 024 [facility] [address], [address], [place], [address], 05/02/2024 11:04:14 losartan 100 mg tablet 2023 024 [facility] [address], [address] , [place], [address], 05/02/2024 11:03:30 Acetamino phen Extra Strength 500 mg tablet 2023 024 [facility] [address], [address], [place], [address], 02/13/2024 11:36:25 ibuprofen 800 mg tablet 2023 024 [facility] [address], [address], [place], [address], 02/13/2024 12:37:03 Farxiga 10 mg tablet [email or web address] [place] [address] 2425, [address], [place], [address], 05/01/2025 10:45:49 Trulicity 4.5 mg/0.5 mL subcutane ous pen injector 2023 024 [facility] [address]25, [address] , [place], [address], 05/01/2025 11:05:21 metformin 1,000 mg tablet 2023 024 [facility] [address]25, [address], [place], [address], 05/08/2024 15:04:13 glimepiri de 4 mg tablet 2023 024 [facility] [address]25, [address], [place], [address], 02/13/2024 11:36:26 Aquaphor Healing 41 % topical ointment [address], [address], [place], [address], 05/02/2024 10:47:11 pravastat in 10 mg tablet 2023 024 [facility] [address]25, [address], [place], [address], 02/13/2024 11:36:22 losartan 50 mg-hydroc hlorothia zide 12.5 mg tablet 2023 024 [facility] 2425, [address], [place], [address], 05/02/2024 11:01:21 azelastin e 137 mcg (0.1 %) nasal spray 2022 023 [facility] [address]25, [address], [place], [address], 02/13/2024 11:11:38 Trulicity 3 mg/0.5 mL subcutane ous pen injector [address], [address], [place], [address], 05/02/2024 10:47:58 glimepiri de 4 mg tablet 2022 023 [facility] [address]25, [address], [place], [address], 08/22/2023 11:32:25 Patient TargetsNo targets recorded. Patient Instructions Encounter Date Encounter Id Patient Instructions Last Modified By Organization Details Last Modified Time 08/22/2023 [id number] FU in 3 mo for dm, htn, lipid, arthritis, weight, allergies. Not available 08/22/2023 11:35:04 Reason for Referral Manager Medical Writing And Gynecologis t Referral for Gynecologic examination Please call patient to schedule an appointment. Thank you. Referring Physician: Archana Alarcon [facility], Encounter Date: 02/13/2024 Watch Repairer Referral for Pain in left foot Please call patient to schedule an appointment if patient has not scheduled yet. Thank you. Referring Physician: Archana Alarcon [facility], Encounter Date: 02/13/2024 Watch Repairer Referral for Pain in left foot Please call patient to schedule an appointment. Thank you. Referring Physician: Archana Alarcon [facility], Encounter Date: 05/02/2024 Orthopedic Surgeon Referral for Pain of knee region Please call patient to schedule an appointment. Thank you. Referring Physician: Archana Alarcon [facility], Encounter Date: 05/01/2025 Physical Therapist Referral for Pain of left shoulder region Referring Physician: Willis Salazar, Orthopedic Surgery, Encounter Date: 10/20/2025 Results Created Date Observation Date Name Description Value Unit Range Abnormal Flag Note LastModifiedBy Organization Detail LastModifiedTime 10/20/20 25 XR, shoul júnior No observ ation record ed. [email or web address] [facility] [address], [place], [address], 10/20/2025 12:03:46 Result Notes None recorded. Problems Name Problem SNOMED Code Status Onset Date Resolution Date Notes Provider Name and Address Organization Details Recorded Time Diabetes mellitus 00086887 Active 2018 Not Available [employer] 3 04:52:02 Edema of lower extremity 177930144 Active 2018 Not Available [facility] 3 04:52:01 Bipolar disorder 36228489 Active 2018 Not Available [employer] 3 04:52:01 Pain in left knee Active 2018 Not Available [facility] 3 04:52:01 Obese 466987167 Active 2018 Not Available [facility] 3 04:52:01 Hyperlipid emia 27229670 Active 2018 Not Available [facility] 3 04:52:02 Essential hypertensi on 87894357 Active 2018 Not Available [facility] 3 04:52:02 Vitamin B12 deficiency (non anemic) 04855565 Active 2018 Not Available [facility] 3 04:52:02 Iron deficiency anemia 30898231 Active 2018 Not Available [facility] 3 04:52:02 Knee pain Active 2019 Not Available [facility] 3 04:52:01 Tremor 24977482 Active 2020 Not Available [facility] 3 04:52:01 [employer] monitoring 584766947 Active 2020 Not Available [facility] 3 04:52:01 Tardive dyskinesia 916151806 Active 2021 Not Available [facility] 3 04:52:01 Pain of multiple joints 98563008 Active 2021 Not Available [facility] 3 04:52:01 Pain of bilateral knee joints 3077292792086 04 Active 2021 Not Available [facility] 3 04:52:02 Fatigue 82627630 Active 2021 Not Available [facility] 3 04:52:02 Allergic rhinitis 97699588 Active 2022 Rosemarie York NP [address], [address], [place], [address] , [employer] [facility] [employer] 3 08:49:34 Obstructiv e sleep apnea syndrome 08711078 Active 2022 Rosemarie York NP [address], [address], [place], [address] , [employer] [facility] [employer] [facility] 3 08:51:38 Excessive cerumen in ear canal 996707745 Active 2022 Rosemarie York NP [address], [address], [place], [address] , [place] [facility] 3 09:40:58 Sleep apnea 35401410 Active 2022 Rosemarie York NP [address], [address], [place], [address] , [place] [facility] 3 10:31:46 Pain in bilateral feet 7977935898678 9102 Active 2022 Rosemarie York NP [address], [address], [place], [address] , [place] [facility] 3 10:37:07 Dysuria 55314798 Active 2022 Rosemarie York NP [address], [address], [place], [address] , [place] [facility] 3 12:23:36 Uncontroll ed type 2 diabetes mellitus 035522716 Active 2022 Rosemarie York NP [address], [address], [place], [address] , [place] [facility] 3 11:43:34 Acute urinary tract infection 555848097 Active 2022 Rosemarie York NP [address], [address], [place], [address] , [place] [facility] 3 09:06:59 Cough 81547285 Active 2022 Rosemarie York NP [address], [address], [place], [address] , [place] [facility] 3 17:01:11 Pain in left foot 6982861313000 07 Active 2023 AXEL Gomez [address], [address], [place], [address] , [place] [facility] 4 11:34:59 Severe dry skin 579676449 Active 2023 AXEL Gomez [address], [address], [place], [address] , [place] [facility] 4 11:38:07 Pain of left shoulder joint 0324813499395 9109 Active 2023 AXEL Gomez [address], [address], [place], [address] , [facility] 4 11:02:36 Type 2 diabetes mellitus without complicati on 338556187 Active 2024 AXEL Gomez [address], [address], [place], [address] , [facility] 5 12:34:18 Pain of knee region 0331428280 Active 2024 AXEL Gomez [address], [address], [place], [address] , [facility] 5 11:07:13 Episodic migraine 2897420614953 06 Active 2024 AXEL Gomez [address], [address], [place], [address] , [facility] 5 11:09:33 Diabetic foot 970436411 Active 2024 AXEL Gomez [address], [address], [place], [address] , [facility] 5 16:11:13 Pain of left shoulder region Active 2024 Bety [employer], [place] [facility] 5 11:20:34 Nontraumat ic rotator cuff tear 194385596 Active 2024 RILEY Perez [address], [address], [place], [address] , [facility] 5 12:04:35 Problem Notes None recorded. Procedures Surgical History Date Name Laterality Status Provider Name and Address Organization Details Recorded Time 02/01/20 23 Cerumen Removal completed Rosemarie York NP [address], [address], [place], [address], [facility] 01/31/2023 09:40:45 11/13/18 90 other completed Rosemarie Rojas RN [place] [facility] 01/31/2023 08:28:09 Tonsillectomy completed Not Available [facility] 01/11/2023 04:42:50 Imaging Results None recorded. Procedure Notes None recorded. Medical Equipment None Reported. Allergies Allergen ID Allergen Name Allergen Category Reaction Reaction Severity Criticality Documentation Date Start Date Code Code System Note Provider Name and Address Organization Details Recorded Time 8493 Product containin g penicilli n (product) medicatio n rash Not available Not available 01/11/2023 99850 8001 SNOMED Not Available [facility] 05:05:16 Medications Name Sig Start Date Stop [...] Available Not Available Not Available OneTouch Ultra Test strips USE TO TEST FASTING [...] ne propionat e 50 mcg/actua tion nasal spray,[employer] USE 1 SPRAY(S) IN EACH NOSTRIL [...] -hydrocor t 3.5 mg-10,000 unit/mL-1 % ear drops,calrk p 07/03 completed Not Available Not Available [...] Not Available Pen Needle 30 gauge x 03/28 use with victoza daily 10/20 completed Not [...] completed Not Available Not Available Not Available SurDocTouch Ultra Blue Test Strip USE STRIPS TO TEST FASTING GLUCOSE DAILY active Not Available Not Available No t Available OneTouch Ultra2 Meter USE TO TEST FASTING GLUCOSE DAILY 02/06 completed Not Available Not Available Not Available OneTouch Delica Plus Lancet 33 gauge USE DIRECTED TO TEST FASTING SUGAR active Not Available Not Available No t Available [facility] ODT 75 mg disintegr ating tablet DISSOLVE [...] height Body mass index (BMI) Body weight Body temperature Heart rate Respiratory rate Oxygen saturation Pain severity - 0-10 verbal numeric rating [Score] - Reported Systolic And Diastolic Provider Name and Address Organization Details Last Updated DateTime 4 160.02 cm 47.6 kg/m2 406479. 21 g 96.9 [degF] 83 /min 20 /min 98 % 7 154/72 mm[Hg] Rosemarie Rojas RN [facility] [employer] [facility] 4 11:04:32 Date Recorded Body height Body mass index (BMI) Body weight Body temperature Heart rate Oxygen saturation Pain severity - 0-10 verbal numeric rating [Score] - Reported Respiratory rate Systolic And Diastolic Provider Name and Address Organization Details Last Updated DateTime 5 160.02 cm 45.2 kg/m2 237322. 15 g 98.1 [degF] 78 /min 98 % 8 24 /min 128/78 mm[Hg] Rosemarie Rojas RN [facility] [employer] [facility] 5 10:51:29 Date Recorded Body height Body mass index (BMI) Body weight Body temperature Heart rate Respiratory rate Oxygen saturation Pain severity - 0-10 verbal numeric rating [Score] - Reported Systolic And Diastolic Provider Name and Address Organization Details Last Updated DateTime 4 160.02 cm 48 kg/m2 333101. 93 g 98.1 [degF] 78 /min 20 /min 98 % 8 142/78 mm[Hg] Rosemarie Rojas RN [facility] [employer] 4 10:50:21 Date Recorded Body height Body mass index (BMI) Body weight Body temperature Heart rate Respiratory rate Oxygen saturation Pain severity - 0-10 verbal numeric rating [Score] - Reported Systolic And Diastolic Provider Name and Address Organization Details Last Updated DateTime 3 160.02 cm 49.1 kg/m2 425327. 79 g 97.4 [degF] 105 /min 24 /min 98 % 5 130/64 mm[Hg] Rosemarie Rojas RN [facility] [employer] 3 11:14:45 Date Recorded Body height Body mass index (BMI) Body weight Provider Name and Address Organization Details Last Updated DateTime 10/20/2025 157.48 cm 46.6 kg/m2 375648.05 g Bety Paulino [employer] [facility] [employer] 10/20/2025 11:14:51 Social History Question Answer Notes LastModified by Organizat ion Details LastModified Time Tobacco Smoking Status Former Smoker Not Available [facility] 01/11/2023 04:12:40 Do You Have An Advance Directive? No Information not available 01/31/2023 Is Blood Transfusion Acceptable In An Emergency? Yes Information not available 01/31/2023 What Is Your Level Of Caffeine Consumption? Moderate [id number] Information not available 01/11/2023 How Much Tobacco Do You Chew? None MIGRATION.12157 [id number] Information not available 01/11/2023 What Is Your Code Status? DNR Information not available 01/31/2023 In The 14 Days Before Symptom Onset, Have You Had Close Contact With A Laboratory-confir med COVID-19 While That Case Was Ill? No [id number] Information not available 01/11/2023 In The 14 Days Before Symptom Onset, Have You Had Close Contact With A Person Who Is Under Investigation For COVID-19 While That Person Was Ill? No MIGRATION.[id number] Information not available 01/11/2023 What Type Of Diet Are You Following? REGULAR MIGRATION.78772 63489 Information not available 01/11/2023 Which Illicit Or Recreational Drugs Have You Used? None MIGRATION.10954 50018 Information not available 01/11/2023 What Is The Highest Grade Or Level Of School You Have Completed Or The Highest Degree You Have Received? [id number] Information not available 01/31/2023 How Many Days [...] Do You Have A Medical Power Of Transitional Studies Instructor? No Information not available 01/31/2023 How Many [...] How Much Tobacco Do You Smoke? No MIGRATION.66372 52441 Information not available 01/11/2023 Do You Participate [...] is your level of alcohol consumption? None MIGRATION.[id number] 4868 Information not available 01/11/2023 Do you or have you ever used smokeless tobacco? Never used smokeless tobacco MIGRATION.[id number] 9479 Information not available 01/11/2023 Are you currently [...] anxious, or unable to sleep at night)? [id number] Information not available 08/22/2023 Family History Relationship Description Onset Age of this Age Resolved Age Notes LastModified by Organization Details LastModified Time Brother Diabetes mellitus [id number].240 [id number] Not available 01/11/2023 04:42:51 Brother Hypertensive disorder MIGRATION.304 [id number] Not available 01/11/2023 04:42:51 Maternal Uncle Diabetes mellitus MIGRATION.037 [id number] Not available 01/11/2023 04:42:51 Father Diabetes mellitus Deceas ed (diabe tic coma) MIGRATION.309 [id number] Not available 01/11/2023 04:42:51 Medical History Condition Response ARTHRITIS Y ANXIETY DISORDER Y OBESITY Y DIABETES, TYPE Y DEPRESSION (INCLUDING POST [...] Details Recorded Time SARS-COV-2 (COVID-19) vaccine, UNSPECIFIED completed Not Available [facility] 01/11/2023 05:04:45 Past Encounters Encounter ID Performer Location Encounter Start Date Encounter Closed Date Diagnosis/Indication Diagnosis SNOMED-CT Code Diagnosis ICD10 Code Diagnosis IMO Codes Diagnosis Note [id number] Jose Doll MD [facility] [address] [address] 03/03/2021 00:00:00 03/03/2021 12:48:34 [id number] Jose Doll MD [facility] [address] [place] [address] 06/01/2021 00:00:00 06/01/2021 10:13:01 [id number] Jose Doll MD [facility] [address] [place] [address] 09/29/2021 00:00:00 09/29/2021 12:00:24 [id number] Jose Doll MD [facility] [address] [place] [address] 10/20/2021 00:00:00 10/20/2021 10:04:24 [id number] Jose Doll MD [facility] [address] [place] [address] 10/26/2021 00:00:00 10/26/2021 18:00:49 [id number] Jose Doll MD [facility] [address] [place] [address] 12/28/2021 00:00:00 12/28/2021 12:04:41 [id number] Jose Doll MD [facility] [address] [place] [address] 01/04/2022 00:00:00 01/04/2022 18:34:50 [id number] Jose Doll MD [facility] [address] [place] [address] 01/12/2022 00:00:00 01/12/2022 14:44:14 [id number] [facility] [address] [place] [address] 08/02/2022 00:00:00 08/02/2022 11:25:48 [id number] [facility] [address] [place] [address] 01/31/2023 08:04:34 01/31/2023 10:00:51 Obese [id number] E66.9 Diet and exercise advised. Bipolar disorder 3151796 4 F31.9 Psych. [employer] and [employer]. No longer on benztropin e for TD. Diabetes mellitus 559219 09 E11.9 Glimepirid e 4 mg po daily.Metf ormin 1000 mg po bidVictoza 1.8 mg daily. Try to trade for trulicity. Essential hypertension 24592400 I10 losartan 50 mg po daily. Hyperlipidemia 75477026 E78.5 pravastati n 10 mg po nightly. Pain of bi lateral knee joints 4116973155 93738 M25.561 M25.562 ortho prn. Ibuprofen prn. Allergic rhinitis 938619 04 J30.9 flonase. Screening mammography 24 433316 Z12.31 Obstructiv e sleep apnea syndrome 53902722 G47.33 Sleep study needed for new machine. Orig sleep study was > 10 years ago. Machine stopped working. Anemia screening 4036951 07 Z13.0 Thyroid di sorder screening 818676123 Z13.29 Excessive cerumen in ear canal 472759975 H61.23 irrigated 01/31/23 Sleep apnea 63196616 G47 .30 [id number] Rosemarie York NP [facility] [address] [address] 05/02/2023 09:45:26 05/02/2023 11:13:58 Diabetes mellitus 12123842 E11.9 Glimepirid e 4 mg po daily.Metf ormin 1000 mg po bidVictoza 1.8 mg daily. Try to trade for trulicity. Excessive cerumen in ear canal 679994611 H61.23 irrigated 23 Bipolar disorder 9294196 4 F31.9 Psych. [employer] and [employer]. No longer on benztropin e for TD. Obese 563532316 E66.9 Diet and exercise advised. Essential hypertension 31095784 I10 losartan 50 mg po daily. Hyperlipidemia 96214351 E78.5 pravastati n 10 mg po nightly. Pain of bi lateral knee joints 3186493603 29320 M25.561 M25.562 ortho prn- injections did not help. Ibuprofen prn tid no helping. Will start on meloxicam. Allergic rhinitis 735657 04 J30.9 flonase. Screening mammography 24 788495 Z12.31 mammogram ordered 05/02/23 Obstructiv e sleep apnea syndrome 69761740 G47.33 Sleep study needed for new machine. Orig sleep study was > 10 years ago. Machine stopped working. pt states she did not schedule appt. Vitamin B1 2 deficiency (non anemic) 77486354 E53.8 mvi [employer] dyskinesia 18363 9007 G24.01 Seeing PSych. Pain in bi lateral feet 1656026852 0864062 M79.671 M79.672 referring to podiatry. Inserts in the past made pain worse. [id number] Rosemarie York NP [address] [address] 07/18/2023 11:09:18 07/18/2023 12:37:12 [id number] Rosemarie York NP [address] [address] 08/22/2023 10:18:43 08/22/2023 11:47:42 Diabetes mellitus 13861398 E11.9 Glimepirid e 4 mg po daily.Metf ormin 1000 mg po bidTrulici ty 1.5 dose next week. Then to 3 mg weekly inj. Bipolar disorder 5995092 4 F31.9 Psych. [employer] and [employer]. No longer on benztropin e for TD. Obese 008504464 E66.9 Diet and exercise advised. Essential hypertension 19440965 I10 losartan 50 mg po daily.<2 gm sodium diet. Hyperlipidemia 21966565 E78.5 pravastati n 10 mg po nightly.Lo w fat diet. Pain of bi lateral knee joints [id number] 19248 M25.561 M25.562 ortho prn- injections did not help. Ibuprofen prn tid no helping. PRN meloxicam. Allergic rhinitis 133704 04 J30.9 flonase, zyrtec, benadryl, azelastine 137 mcg. Screening mammography 24 517892 Z12.31 mammogram ordered 05/02/23 Obstructiv e sleep apnea syndrome 45219991 G47.33 Sleep study needed for new machine. Orig sleep study was > 10 years ago. Machine stopped working. pt states she did not schedule appt. Pain in bi lateral feet [id number] 2468983 M79.671 M79.672 referred to podiatry. Inserts in the past made pain worse. Pt still needing to make appt. Vitamin B1 2 deficiency (non anemic) 58530120 E53.8 mvi Tardive dyskinesia 33694 9007 G24.01 Seeing PSych. Knee pain 73068256 M25.5 69 Routine. Arthritis. [id number] Jose Doll MD [address] [address] 02/13/2024 10:57:12 02/13/2024 11:48:16 Diabetes mellitus 71313984 E11.9 Essential hypertension 12464656 I10 Screening mammography 24 821069 Z12.31 Gynecologi c examination 58304681 Z01.419 Hyperlipidemia 03034804 E78.5 Uncontroll ed type 2 diabetes mellitus 401717872 E11.65 Osteoarthritis 943661261 M19.90 Pain in left foot 067413 3460 77103 M79.672 Severe dry skin 77133799 2 L85.3 [id number] Jose Doll MD [address] [address] 05/02/2024 10:32:50 05/02/2024 11:11:21 Essential hypertension 23257817 I10 Pain of le ft shoulder joint [id number] 8707014 M25.512 Pain in left foot 583364 3270 01709 M79.935 [id number] Jose Doll MD [address] [address] 05/01/2025 10:34:58 05/01/2025 11:24:14 Diabetes mellitus 74450748 E11.9 She is checking her blood glucose levels once daily- if cgm is denied, would like more strips for TID testingHer lowest reading was 106She admits to difficulty with daily testing due to forgetfuln essShe would benefit from continuous glucose monitoring Ozempic sample given in office, Trulicity has not been controllin g sugars Pain of le ft shoulder joint [id number] 5584905 M25.512 Chronic, would like to see ortho Pain of knee region 1003 257869 M25.561 M25.562 G89.29 44340043 Believes she may need replacemen t, would like to see ortho Episodic migraine 352741 3274 48578 G43.909 [id number] Failed topiramate Nurtec samples given in office. Hyperlipidemia 11105387 E78.5 Has been off of statin x 3 days Iron defic iency anemia 59895877 D50.9 Obese 849618756 E66.9 Exercising , watching carbs and sugars [id number] Suresh Tran MD [facility] [address] [place] [address] 10/20/2025 10:58:35 10/20/2025 12:06:54 Pain of left shoulder region 8926582458 M25.512 31805266 Nontraumat ic rotator cuff tear 232051952 M75.102 [id number] Health Concerns Section Related Observation LastModified by Organization Detai ls LastModified Time None Recorded Concern Status LastModified by Organization Details LastModified Time None Recorded Advance Directives Directive N: Payers Insurance Date Sequence Insurance Name Policy Number Policy Zimmerman Covered Member ID Zimmerman Member ID Guarantor Name 10/03/2025 1 [facility] [employer] [facility] - DOS PRIOR TO 2025 (MEDICAID REPLACEMENT - HMO) [id number] Ana Luisa Estrada [id number] Ana Luisa Estrada 10/28/2025 1 [facility] [employer] [facility] - DOS ON OR AFTER 2025 (MEDICAID REPLACEMENT - HMO) [id number] Ana Luisa Estrada [id number] Ana Luisa Estrada Notes Date Note Type Note Provider Name and Address Organization Details Recorded Time 3 text/html Pt. here for 6 month follow up on chronic conditions. States she weed eated the yard and started having sinus drainage, congestion, sore throat from drainage in throat. Diet normal. No fever or chills. Having some constipation from trulicity. Eating fiber one bar daily- food stamps cover cost vs supplement that they do not. Pt aware to watch sugars. Joint pain- still bad. using ibuprofen. 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 States she likes it and is happy to be losing weight. Still needing to schedule with podiatry. Depression - Stable. States meds the same. Mood - pt. reports stable. Allergies - flared currently with recent yard work. flonase and zyrtec not enough. DM - Trying to eat better all the time. Starting 1.5 mg trulicity next week. Likes once weekly inj vs daily. Htn - blood pressure good today in office; takes losartan daily. Has also been on farxiga. Lipids - She is taking pravastatin nightly. Working on improvements to diet. Rosemarie York NP [address] [facility], [facility] [address], [place], [address], [facility] [employer] [employer] 08/22/2023 11:45:42 4 text/html Miracle Estrada is a 53 year old female patient here to establish care. She is under the care of psych. She has a diagnosis of Bipolar disorder. She is taking ziprasidone 60 mg PO daily and lithium carbonate 300 mg TID. She is following up every 6 months Her medical history is pertinent for diabetes. Her last A1C (07/18/2023) was 10.2. She is not currently under the care of endocrinology. She is currently taking farxiga 5 mg PO daily, glimepride 4 mg PO daily, metformin 1,000 mg PO BID, and Trulicity 3 mg SQ weekly. She admits to some medication non-compliance due to unavailability but increased physical activty with her new job. She has hypertension. On arrival, her blood pressure is 154/72. She is taking losartan 50 mg PO daily. She has a history of elevated lipids. She is taking pravastatin 10 mg PO HS. Will retest today. She is concerned with dry skin on her feet and ankles. She has been using bath and body works lotion. Her feet are beginning to become scaly and peel. She is also having left foot pain and feels that her arch is flattening and her toes are widening. Flu Shot: 09/2023COVID vaccines: 05/2021, 05/2021Tdap: overdue, recommendedShingles vaccines: recommendedColonoscopy: neg 09/2022, repeat 09/2025Mammogram: ordered todayWWE: overdue, referral to OBGYN AXEL Gomez [address], [address], [place], [address], [employer] 02/13/2024 12:37:21 4 text/html Miracle Estrada is a 53 year old female patient here to follow up on hypertension. At her last visit, we increased losartan 50 mg to losartan 50 - HCTZ 12.5 mg. She notes that since she started this she feels more bloated and has had some GERD like chest pain. We will discontinue HCTZ. She is having pain in her left shoulder, this started this morning. She states this is not at all associated with the GERD chest pain. The shoulder pain radiates up to the neck. She states this fills similar to arthritis in the knee. 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 An xray was ordered at her last visit. AXEL Gomez [address], [address], [place], [address], [employer] 05/02/2024 11:37:20 5 text/html Miracle Estrada is a 54 year old female patient here today for an annual wellness visit. She has type 2 diabetes, she has concerns with elevated blood sugars. She admits she frequently forgets to take her medicine. Her fasting glucose has been around 200s.She is currently taking glimepride 4 mg daily and metformin 1,000 mg BID.She has not been taking her Trulicity for the last few months. She has bipolar disorder, this is managed by psych History of hypertension. This is well controlled. Patient does not check BP readings at home.BP on arrival today is 128/78.She is currently taking losartan 100 mg dailyPatient declines headaches, tinnitus, light headedness, fatigue. Hyperlipidemia. Last labs 2022.They are currently taking pravastatin 10 mg, has been out for 3-4 days. Denies muscle cramping.Advised to limit fatty/greasy foods and increase cardiovascular exercise She has concerns with persistent joint pains, she states her knees and shoulder and very painful, limiting her ability to work. She states she has [id number] in SEE knees Concerns with migraines, these occur a couple of time per week. She has photophobia. AXEL Gomez [address], [address], [place], [address], [employer] 05/01/2025 11:21:11 5 text/html The patient is a 55-year-old female [...] today with the patient. RILEY Perez [address], [address], [place], [address], [employer] 10/20/2025 12:05:36 OBGyn Episode No OBEpisode recorded.
[2025-11-10 13:45] VITALS: BP 134/74; PULSE 79; RESP 15; TEMP 37; O2SAT 99
--- NOTE | 2025-11-10 16:25 | ED.GENADULT ---
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 She has also dropped a few items because of hurts to hold onto them. She recently had a fall several weeks ago not caused a possible rotator cuff tear and she is being seen by Orthopedic surgery. She has been taking Tylenol and ibuprofen for her pain. No numbness or tingling to her arm. Related Data Home Medications ?Medication ?Instructions ?Recorded ?Confirmed ?Last Taken ?Type lithium carbonate 300 mg capsule 300 mg PO TIDWM 04/28/21 08/01/25 Unknown History metformin 1,000 mg tablet 1,000 mg PO BID 04/28/21 08/01/25 Unknown History pravastatin 10 mg tablet 10 mg PO DAILY 04/28/21 08/01/25 Unknown History ziprasidone HCl 80 mg capsule 80 mg PO DAILY 04/28/21 08/01/25 Unknown History losartan 50 mg tablet 50 mg PO DAILY 05/25/21 08/01/25 Unknown History benztropine 0.5 mg tablet 0.5 mg PO BID 04/02/25 08/01/25 Unknown History Allergies Allergy/AdvReac Type Severity Reaction Status Date / Time Penicillins Allergy Unknown Rash Verified 11/10/25 15:36 Review of Systems Constitutional: Constitutional: Reports no additional constitutional complaints Cardiovascular: Cardiovascular: Reports no additional cardiovascular complaints Respiratory: Respiratory: Reports no additional respiratory complaints Gastrointestinal: Gastrointestinal: Reports no additional gastrointestinal complaints Integumentary/Breasts: Skin/Breast: Reports system reviewed and no additional complaints, except [facility] Past Medical History Medical History Bipolar disorder History of hypertension History of hyperlipidemia History of diabetes mellitus Surgical History Surgical History History of tonsillectomy History of cholecystectomy Hx of appendectomy Family History Family History Mother Family history of Alzheimer's disease Hypertension Family history of elevated blood lipids Cerebrovascular accident, Onset Age: 78 Father Family history of diabetes mellitus in first degree relative, Onset Age: 55 Hypertension Family history of elevated blood lipids Patient's father is Other Diabetes mellitus Family history of allergic disorder Family history of cardiovascular disease Social History Social History Smoking status: Never smoker Alcohol intake: never Gender identity (if verbalized by the patient): Female Exam Narrative: GENERAL: Well-appearing, well-nourished, and in no acute distress. HEAD: Normocephalic, atraumatic. ENT: Mucous membranes moist. HEART: Regular rate and rhythm. Normal peripheral pulses. EXTREMITIES: Focused exam of the left upper extremity reveals normal strength at digits 1 through 5 with isolation with both flexion and extension, normal strength at the wrist as well as elbow. No sensation deficit. SKIN: Warm, dry, no rash. NEURO: Alert and oriented x3. PSYCH: Normal mood and affect. Course Course Emergency Course: No need for imaging. Will provide muscle relaxers for home. Recommend ice and heat. Suspects she has been using her arm differently since injury of her shoulder and his causing undue strain on her forearm. Vital Signs Vital signs: Vital Signs Temperature 98.6 F 11/10/25 13:45 Pulse Rate 79 11/10/25 13:45 Respiratory Rate 15 11/10/25 13:45 Blood Pressure 134/74 11/10/25 13:45 Pulse Oximetry 99 11/10/25 13:45 Temperature 98.6 F 11/10/25 13:45 Pulse Rate 79 11/10/25 13:45 Respiratory Rate 15 11/10/25 13:45 Blood Pressure 134/74 11/10/25 13:45 Pulse Oximetry 99 11/10/25 13:45 MDM Differential Diagnosis Differential Diagnosis: Muscle spasm, muscle strain, radiculopathy, dvt Discharge Plan Discharge Clinical Impression: Forearm pain Patient Disposition: Home Condition: Stable Instructions: P.R.I.C.E. Treatment (ED), Arm Pain (ED) Additional Instructions: Return the ER if you have worsening pain, you have paralysis of your hand, you have new numbness of your hand or arm, or you have additional concerns. Ice your forearm 2 to 3 times a day for 20 minutes at a time. Take muscle relaxers as needed. Continue taking Tylenol and ibuprofen at home. Patient Language: Bulgarian Prescriptions: New cyclobenzaprine 10 mg tablet 10 mg PO TID PRN (Reason: muscle spasm) Qty: 20 0RF No Action losartan 50 mg tablet 50 mg PO DAILY benztropine 0.5 mg tablet 0.5 mg PO BID dicyclomine 20 mg tablet 20 mg PO QID PRN (Reason: abdominal pain) Qty: 14 0RF ziprasidone HCl 80 mg capsule 80 mg PO DAILY pravastatin 10 mg tablet 10 mg PO DAILY lithium carbonate 300 mg capsule 300 mg PO TIDWM metformin 1,000 mg tablet 1,000 mg PO BID Follow-up/Referrals: Carlos Alberto Vance MD [Physician, Family Practice] - 1 Week
--- OUTSIDE RECORDS SUMMARY | 2025-11-10 16:25 | XMS_ITS | Clinical Summary ---
Author Organization [facility] Address [address] [place] [address] Care Team Providers Care School Adjustment Counselor Name Role Phone Unavailable Primary Care Provider [...]
== END 2025-11-10 16:51 | disposition home or self-care (01) ==
PROVIDERS: Emergency Provider Emergency Medicine
DX: M79.632 Pain in left forearm (principal); I10 Essential (primary) hypertension; E78.5 Hyperlipidemia, unspecified; E11.9 Type 2 diabetes mellitus without complications; F31.9 Bipolar disorder, unspecified; Z79.84 Long term (current) use of oral hypoglycemic drugs; Z79.899 Other long term (current) drug therapy
CPT/HCPCS: 99283